=== PATIENT | female | born 1945 | race Caucasian/White ===

== ENCOUNTER 2020-03-25 10:43 | Outpatient (CLI) | payer MEDICARE, OTHER, SELFPAY ==
--- NOTE | 2020-03-25 10:46 | MM_ITS ---
WS: [id number] BILATERAL SCREENING DIGITAL MAMMOGRAM WITH CAD HISTORY: SCREENING COMPARISON: 03/19/2019 and 12/19/2016 Bilateral CC and MLO views submitted. Computer aided detection analyzed. Breast composition: The breasts are heterogeneously dense, which may obscure small masses. No suspici ous masses, microcalcifications or architectural distortion. Benign calcifications and scattered asym metries are stable. MM/[place] [id number] IMPRESSION: BI-RADS: 2-Benign FOLLOW UP: 1 Year Follow-up
== END 2020-03-25 10:44 | disposition home or self-care (01) ==
LOC: RADSHAW 10:43
PROVIDERS: PCP Internal Medicine; Visit Provider Family Medicine
DX: Z12.31 Encounter for screening mammogram for malignant neoplasm of breast (principal)
CPT/HCPCS: 77067

== ENCOUNTER → 2020-03-30 17:32 | Outpatient (BNVA) | payer MEDICARE, OTHER, SELFPAY | PROVIDERS: PCP Internal Medicine; Visit Provider Urology | DX: R32 Unspecified urinary incontinence (principal); N39.0 Urinary tract infection, site not specified | CPT/HCPCS: 80053; 81001; 87077; 87086; 87186 ==

== ENCOUNTER 2020-05-20 09:46 | Outpatient (CLI) | payer MEDICARE, OTHER, SELFPAY ==
--- NOTE | 2020-05-20 10:08 | XR_ITS ---
WS: [id number] Bone mineral density performed on a [email or web address], 05/20/2020 Clinical data: ASYMPTOMATIC POSTMENOPAUSAL Findings: The first 4 lumbar vertebral bodies demonstrated the bone mineral density of 1.032 g/cm2 for a young adult T score of -1.2. Measurement of the left hip reveals a bone mineral density of 0.838 g/cm2 with a young adult T score of -1.3. Measurement of the right hip reveals the bone mineral density of 0.893 g/cm2 for young adult T score of -0.9. XR/XR DEXA axial skeleton* [id number] Impression: 1. Osteopenia of the lumbar spine and left hip. 2. Normal bone mineral density of the right hip.
== END 2020-05-20 09:47 | disposition home or self-care (01) ==
LOC: RADWPI 09:52
PROVIDERS: PCP Internal Medicine; Visit Provider Internal Medicine
DX: Z78.0 Asymptomatic menopausal state (principal)
CPT/HCPCS: 77080

== ENCOUNTER 2020-12-23 13:25 | Outpatient (CLI) | payer MEDICARE, OTHER, SELFPAY ==
--- NOTE | 2020-12-23 13:32 | XR_ITS ---
WS: [id number] Left hip, AP and frog leg views, 12/23/2020 Clinical Data: HIP PAIN, LEFT, UNSPECIFIED FALL, INITIAL ENCOUNTER Comparison: Left hip, 12/17/2018. Findings: No fractures or dislocations are seen. The left hip joint is intact. The soft tissues are not remarka ble. The adjacent pelvis is normal. XR/XR hip LT 2-3V wo/w pel* [id number] Impression: Negative left hip.
== END 2020-12-23 13:26 | disposition home or self-care (01) ==
PROVIDERS: PCP Internal Medicine; Visit Provider Nurse Practitioner Family
DX: M25.552 Pain in left hip (principal); W19.XXXA Unspecified fall, initial encounter
CPT/HCPCS: 73502

== ENCOUNTER 2021-02-01 12:24 | Outpatient (RCR) | payer MEDICARE, OTHER, SELFPAY | END 2021-02-15 23:59 | disposition home or self-care (01) | LOC: SPT 12:24 | PROVIDERS: PCP Internal Medicine; Referring Provider Orthopaedic Surgery; Visit Provider Orthopaedic Surgery | DX: M25.552 Pain in left hip (principal) | CPT/HCPCS: 97110; 97161 ==

== ENCOUNTER 2021-02-16 06:00 | Outpatient (RCR) | payer MEDICARE, OTHER, SELFPAY | END 2021-03-18 23:59 | disposition home or self-care (01) | LOC: SPT 06:00 | PROVIDERS: PCP Internal Medicine; Referring Provider Orthopaedic Surgery; Visit Provider Orthopaedic Surgery | DX: M25.552 Pain in left hip (principal) | CPT/HCPCS: 97110 ==

== ENCOUNTER 2021-08-18 22:33 | Emergency (ER) | payer MEDICARE, OTHER, SELFPAY ==
[2021-08-18 22:47] VITALS: BP 138/77; PULSE 98; RESP 22; TEMP 36.6; O2SAT 100
--- NOTE | 2021-08-18 22:54 | CTR_ITS ---
PROCEDURE INFORMATION: Exam: CT Cervical Spine Without Contrast Exam date and time: 08/18/2021 10:54 PM Age: 76 years old Clinical indication: Injury or trauma; Fall; Blunt trauma; Prior surgery; Surgery type: Thyroidectomy; Patient HX: Patient tripped and hit head against door frame at home. Hematoma with laceration to RT eyebrow. ETOH on board. TECHNIQUE: Imaging protocol: Computed tomography images of the cervical spine without contrast. Radiation optimization: All CT scans at this facility use at least one of these dose optimization techniques: automated exposure control; mA and/or kV adjustment per patient size (includes targeted exams where dose is matched to clinical indication); or iterative reconstruction. COMPARISON: CT head wo con* [id number] 08/18/2021 11:48 PM RADIATION DOSE METRICS: Total DLP (mGy-cm): 738.33 FINDINGS: Bones/joints: Mild dextroscoliosis. Moderate to severe multilevel spine degenerative changes including degenerative disc disease, spondylosis and facet degenerative changes. Discs/Spinal canal/Neural foramina: Multilevel bilateral foraminal stenosis. Thyroid: Surgical clips in the thyroid bed most consistent with bilateral thyroidectomy. Lungs: Lung apices are normal. Soft tissues: Unremarkable. CT/CT cervical spin wo con* [id number] IMPRESSION: No acute C-spine findings.
--- NOTE | 2021-08-18 22:54 | CTR_ITS ---
PROCEDURE INFORMATION: Exam: CT Head Without Contrast Exam date and time: 08/18/2021 10:54 PM Age: 76 years old Clinical indication: Injury or trauma; Fall; Blunt trauma (contusions or hematomas) and laceration; Without residual foreign body; Right; Patient HX: Patient tripped and hit head against door frame at home. Hematoma with laceration to RT eyebrow. ETOH on board. TECHNIQUE: Imaging protocol: Computed tomography of the head without contrast. Radiation optimization: All CT scans at this facility use at least one of these dose optimization techniques: automated exposure control; mA and/or kV adjustment per patient size (includes targeted exams where dose is matched to clinical indication); or iterative reconstruction. COMPARISON: No relevant prior studies available. RADIATION DOSE METRICS: Total DLP (mGy-cm): 925.48 FINDINGS: Brain: Mild cerebral atrophy and ischemic leukoencephalopathy. Cerebral ventricles: No ventriculomegaly. Paranasal sinuses: Visualized sinuses are unremarkable. No fluid levels. Mastoid air cells: Visualized mastoid air cells are well aerated. Vasculature: Severe calcified intracranial atherosclerotic vessel disease. Bones/joints: Unremarkable. No acute fracture. Soft tissues: Soft tissue swelling and/or hematoma over the right orbit and forehead with laceration over the right eyebrow. CT/CT head wo con* [id number] IMPRESSION: 1. Soft tissue swelling and/or hematoma over the right orbit and forehead with laceration over the right eyebrow. 2. No acute intracranial findings.
--- NOTE | 2021-08-18 22:55 | W.ED.HEATRA ---
HPI - Head Injury General: Chief complaint: Head Injury Stated complaint: Fell Head injury Time Seen by Provider: 08/18/21 22:46 History of Present Illness: HPI Narrative: Patient fell at home this evening. Struck her head against a door frame. Boyfriend said that she was slightly sluggish afterwards. Patient had 2 beers and 4 Tea drinks this evening. And that happened over a period of about 3 hours. Little bit more than what she normally drinks but she says she did not feel intoxicated. Denies headache neck pain denies any pain anywhere else in her body. Does not take any blood thinners. Complaint: fall Onset (ago): minute(s) Mechanism of Injury: fall Place: home Loss of Consciousness: no Location of injury: frontal Severity: mild Severity scale (1-10): 1 Associated symptoms: Reports no associated symptoms; Deny nausea or vomiting Review of Systems Narrative: A fall at home this evening striking door frame. Boyfriend was in the next room and come and found her and states she was slightly sluggish afterwards Const: Denies: fever(s), chills or body aches Eyes: Denies: change in vision or blurry vision ENMT: Denies: throat pain or nasal congestion Card: Denies: chest pain or dyspnea on exertion Resp: Reports: other (History of sleep apnea.); Denies: dyspnea, productive cough or non-productive cough GI: Denies: abdominal pain, nausea or vomiting Musc: Denies: extremity pain Skin/Breast: Reports: skin tenderness (Skin tear above right eye after a fall); Denies: rash Neuro: Denies: headache(s) Psych: Denies: anxiety or depression Bubba/Lymph: Denies: easy bruising PFSH ED PFSH: Medical History (Updated 08/19/21 @ 00:51 by CHELI Green) Hypertension Recurrent UTI Thyroid cancer Urinary incontinence Surgical History H/O breast biopsy H/O thyroidectomy H/O: hysterectomy Family History Father , 66 Alcohol abuse Mother , 42 Cancer Social History Smoking and tobacco status: never smoked Alcohol intake: current Alcohol intake frequency: few times a month Marital status: / Physical Exam Narrative: EXAM NARRATIVE: Patient appears slightly intoxicated but able to speak in full sentences Const: COMMON NORMALS: no acute distress and patient oriented x3 GENERAL APPEARANCE: cooperative HENMT: COMMON NORMALS: normocephalic, EAC's normal, TM's normal bilaterally and Normal external nose present HEAD & SCALP: normocephalic FACE & SINUS: normal facial exam NOSE: Normal external nose present EXTERNAL AUDITORY CANAL: EAC's normal TYMPANIC MEMBRANE: TM's normal bilaterally MOUTH: Normal oral and palatal mucosa present Eye: COMMON NORMALS: EOMs intact bilaterally, conjunctivae normal and normal visual grant by confrontation GENERAL EYE: appearance normal, both eyes and all related structures CONJUNCTIVA: Yes conjunctivae normal Neck/C-Spine: CERVICAL SPINE: Yes cervical ROM normal and No pain with cervical ROM Resp: COMMON NORMALS: normal respiratory effort EFFORT & INSPECTION: Yes able to speak in complete sentences Neuro: COMMON NORMALS: patient oriented x3 and moves all extremities Skin: NARRATIVE SKIN EXAM: Skin tear above right eyebrow no active bleeding, has small lack to right outer aspect of upper eyelid with minor oozing. Procedures Laceration Laceration 1: Site: face Side (If applicable): right Size (cm): 0.3 Description: stellate Depth: simple, single layer Pre-repair: irrigated extensively Skin layer closed with: other (Skin adhesive) Course Vital Signs: Vital signs: Vital Signs Temperature 97.8 F 08/18/21 22:47 Pulse Rate 98 08/18/21 22:47 Respiratory Rate 22 H 08/18/21 22:47 Blood Pressure 138/77 08/18/21 22:47 Pulse Oximetry 100 08/18/21 22:47 MDM - Head Injury MDM Narrative: Medical decision making narrative: Patient presents here with head injury after a fall against a door frame after drinking some alcohol tonight. Patient is alert and oriented x3 able to converse appropriately. She has a skin tear above right eyebrow and has a small stellate laceration to the right upper eyelid. Patient has no discomfort anywhere else on her body. Imaging and neck and head through CT was negative for any concerning findings. Discussed case with Dr. Dia. patient was ambulated after wounds taken care of and patient ambulated well. Patient was discharged home in the care of her boyfriend who will be spending the night with her. Discharge Plan Discharge Patient Disposition: Home Clinical Impression: Laceration Fall Qualifiers: Encounter type: initial encounter Qualified Code(s): W19.XXXA - Unspecified fall, initial encounter Alcohol intoxication Qualifiers: Complication of substance-induced condition: uncomplicated Qualified Code(s): F10.920 - Alcohol use, unspecified with intoxication, uncomplicated Condition: Stable Prescriptions: No Action tacrolimus 0.1 % ointment 1 applic topical BID PRNRF: 0 naproxen 500 mg tablet 500 mg PO BID Qty: 60 RF: 0 levothyroxine [Levoxyl] 75 mcg tablet 75 mcg PO DAILY RF: 0 liothyronine 25 mcg tablet 25 mcg PO DAILY RF: 0 lisinopril 10 mg tablet 10 mg PO DAILY RF: 0 estradiol 0.5 mg tablet 0.5 mg PO DAILY RF: 0 cephalexin [Keflex] 500 mg capsule 500 mg PO BID PRNRF: 0 Discharge Orders: Discharge ED (Routine); Ordered 08/19/21 Ordered By: Joseph Lima Referrals: Zandra Christianson MD [Primary Care Provider] - Discharge Diet: Usual diet Discharge Activity: Increase activity as tolerated Patient Instructions: Skin Adhesive Care (ED), Fall Prevention (ED) Activity Restrictions/Additional Instructions: Follow-up with your primary care provider or return the ER if any worsening of symptoms. Can apply ice to areas of contusion and laceration. Watch for signs and symptoms of infection. Coding Level of Care Code ED Welder Fitter Apprentice for Antony Fwoneyda Exam Detailed
[2021-08-19 01:02] VITALS: BP 115/70; PULSE 98; RESP 20; TEMP 36.6; O2SAT 100
[2021-08-19 01:42] VITALS: BP 115/70; PULSE 98; RESP 20; TEMP 36.6; O2SAT 100
== END 2021-08-19 01:45 | disposition home or self-care (01) ==
PROVIDERS: Emergency Provider Nurse Practitioner Family; PCP Internal Medicine
DX: S01.111A Laceration without foreign body of right eyelid and periocular area, initial encounter (principal); F10.920 Alcohol use, unspecified with intoxication, uncomplicated; W19.XXXA Unspecified fall, initial encounter
CPT/HCPCS: 12011; 70450; 72125; 99283

== ENCOUNTER 2021-11-06 11:46 | Outpatient (CLI) | payer MEDICARE, OTHER, SELFPAY ==
--- NOTE | 2021-11-06 11:51 | MM_ITS ---
WS: [id number] BILATERAL SCREENING 3D TOMOSYNTHESIS DIGITAL MAMMOGRAM WITH CAD HISTORY: SCREENING COMPARISON: 03/25/2020, 03/19/2019 Bilateral CC and MLO views submitted. Computer aided detection analyzed. Breast composition: The breasts are heterogeneously dense, which may obscure small masses. No suspici ous masses, microcalcifications or architectural distortion. Asymmetries and calcifications within ea ch breast are stable. MM/[place] [id number] IMPRESSION: BI-RADS: 2-Benign FOLLOW UP: 1 Year Follow-up
== END 2021-11-06 11:47 | disposition home or self-care (01) ==
LOC: RADSHAW 11:49
PROVIDERS: PCP Internal Medicine; Visit Provider Internal Medicine
DX: Z12.31 Encounter for screening mammogram for malignant neoplasm of breast (principal)
CPT/HCPCS: 77063; 77067

== ENCOUNTER → 2022-10-08 08:18 | Outpatient (BNVA) | payer MEDICARE, OTHER, SELFPAY | PROVIDERS: PCP Internal Medicine; Visit Provider Podiatrist Foot & Ankle Surgery | DX: G62.9 Polyneuropathy, unspecified (principal); L84 Corns and callosities; M20.41 Other hammer toe(s) (acquired), right foot; M20.42 Other hammer toe(s) (acquired), left foot | CPT/HCPCS: 11055; 99203 ==

== ENCOUNTER → 2022-12-17 13:27 | Outpatient (BNVA) | payer MEDICARE, OTHER, SELFPAY | PROVIDERS: PCP Internal Medicine; Visit Provider Podiatrist Foot & Ankle Surgery | DX: L84 Corns and callosities (principal); M20.41 Other hammer toe(s) (acquired), right foot; M20.42 Other hammer toe(s) (acquired), left foot | CPT/HCPCS: 99213 ==

== ENCOUNTER → 2023-11-04 12:40 | Outpatient (BNVA) | payer MEDICARE, OTHER, SELFPAY | PROVIDERS: PCP Internal Medicine; Visit Provider Dermatology | DX: L57.0 Actinic keratosis (principal); L82.0 Inflamed seborrheic keratosis; L82.1 Other seborrheic keratosis; L81.4 Other melanin hyperpigmentation; L57.8 Other skin changes due to chronic exposure to nonionizing radiation; D18.01 Hemangioma of skin and subcutaneous tissue; L85.3 Xerosis cutis | CPT/HCPCS: 17000; 17110; 99203 ==

== ENCOUNTER 2023-11-13 08:00 | Outpatient (CLI) | payer MEDICARE, OTHER, SELFPAY ==
--- NOTE | 2023-11-13 08:13 | MM_ITS ---
WS: [id number] SCREENING DIGITAL TOMOSYNTHESIS MAMMOGRAM WITH CAD HISTORY: SCREENING COMPARISON: 11/06/2021, 03/25/2020 and 12/19/2016 Bilateral CC and MLO with tomosynthesis views submitted. Synthetic mammography reviewed. Computer aid ed detection analyzed. Breast composition: There are scattered areas of fibroglandular density. No suspicious masses, microc alcifications or architectural distortion. Scattered densities and asymmetries and calcifications wit hin each breast. No new abnormality. IMPRESSION: MM/[place] [id number] BI-RADS: 2-Benign FOLLOW UP: 1 Year Follow-up
== END 2023-11-13 08:01 | disposition home or self-care (01) ==
LOC: RAD 08:03
PROVIDERS: PCP Internal Medicine; Visit Provider Internal Medicine
DX: Z12.31 Encounter for screening mammogram for malignant neoplasm of breast (principal)
CPT/HCPCS: 77063; 77067

== ENCOUNTER → 2023-11-22 15:39 | Outpatient (BNVA) | payer MEDICARE, OTHER, SELFPAY | PROVIDERS: PCP Internal Medicine; Visit Provider Specialist | DX: G62.89 Other specified polyneuropathies (principal) | CPT/HCPCS: 95910 ==

== ENCOUNTER → 2024-03-03 08:43 | Outpatient (CLI) | payer MEDICARE, OTHER, SELFPAY ==
--- NOTE | 2024-03-03 08:45 | MR_ITS ---
WS: [id number] MRI BRAIN WITHOUT CONTRAST HISTORY: MEMORY LOSS COMPARISON: CT head 08/18/2021 TECHNIQUE: Diffusion imaging, multiplanar T1, T2 and FLAIR imaging obtained. No evidence for acute infarct or hemorrhage. Shabazz-white matter differentiation is normal. Moderate atrophy with moderate small vessel ischemic type changes in the subcortical and periventricu lar white matter distribution. No prior infarct. There is a very tiny lacunar infarct in the LEFT tem poral lobe. Moderate bilateral hippocampal atrophy. Ventricles and extra-axial spaces are normal. No inferior displacement of the cerebellar tonsils. The sella turcica and pituitary gland are unremar kable. Dural venous sinuses and enterprise of [employer] demonstrate no abnormality on this unenhanced studies. Paranasal sinuses: Clear. Mastoid air cells: Normal small cyst associated with the RIGHT TM joint measures 7 mm.. Calvarium and scalp: Intact. MR/MR head wo con* [id number] IMPRESSION: 1. No acute infarct or ischemic change. 2. Moderate atrophy with moderate small vessel ischemic changes. 3. Tiny lacunar infarct LEFT temporal lobe. 4. Moderate bilateral hippocampal atrophy.
== END | disposition home or self-care (01) ==
LOC: RAD 08:42
PROVIDERS: PCP Internal Medicine; Visit Provider Internal Medicine
DX: R90.82 White matter disease, unspecified (principal); I67.89 Other cerebrovascular disease; G31.9 Degenerative disease of nervous system, unspecified; R41.3 Other amnesia
CPT/HCPCS: 70551

== ENCOUNTER → 2024-05-13 08:41 | Outpatient (BNVA) | payer MEDICARE, OTHER, SELFPAY | PROVIDERS: PCP Internal Medicine; Visit Provider Nurse Practitioner Family | DX: L57.0 Actinic keratosis (principal); L82.0 Inflamed seborrheic keratosis; L82.1 Other seborrheic keratosis; L81.4 Other melanin hyperpigmentation; L57.8 Other skin changes due to chronic exposure to nonionizing radiation | CPT/HCPCS: 17000; 99213 ==

== ENCOUNTER 2024-11-12 19:44 | Inpatient (IN) | payer MEDICARE, OTHER, SELFPAY ==
--- NOTE | 2024-11-12 19:57 | ED_ITS ---
HPI - General Adult 2 General: Chief complaint: Fall Stated complaint: Fall, Found on floor Time Seen by Provider: 11/12/24 19:45 History of Present Illness: Patient presents to the ER by EMS. EMS stated patient was found on the floor by her boyfriend and her boyfriend could not get to her because all the doors locked so he called 911 and when he got to the house someone decided she needed to come here to be evaluated. Patient has no complaints at this time. Patient states she sat down because she was tired folding close she denies falling passing out blacking out or any pain. Related Data Home Medications ?Medication ?Instructions ?Recorded ?Confirmed levothyroxine 75 mcg tablet 75 mcg PO DAILY 03/30/20 0 04/29/24 (Levoxyl) liothyronine 25 mcg tablet 25 mcg PO DAILY 03/30/20 lisinopril 10 mg tablet 10 mg PO DAILY 03/30/2004/19 tacrolimus 0.1 % topical ointment 1 applic topical BID PRN 09/22/20 04/29/24 Previous Rx's ?Medication ?Instructions ?Recorded cephalexin 500 mg capsule 500 mg PO TID 7 days #21 cap s 04/29/24 triamcinolone acetonide 0.5 % 1 applic topical DAILY # 15 grams 04/29/24 topical cream Allergies Allergy/AdvReac Type Severity Reaction Status Date / Time No Known Allergies Allergy Verified 04/29/24 15:27 Review of Systems 2 General: Reports: 10 or more systems reviewed and unremarkable except in HPI and below PFSH ED 2 PFSH: Medical History Uterine fibroid Thyroid cancer Hypertension Recurrent UTI Urinary incontinence Surgical History H/O breast biopsy H/O: hysterectomy H/O thyroidectomy Family History Father , 66 Alcohol abuse Mother , 42 Cancer Social History Smoking and tobacco/nicotine status: unknown if used tobacco/nicotine Alcohol intake: current Alcohol intake frequency: few times a month Substance/Drug Use: never Marital status: / Physical Exam 2 Const: COMMON NORMALS: no acute distress, average body habitus, patient oriented x3, no limitations, healthy appearing, alert and well nourished HENMT: COMMON NORMALS: normocephalic, atraumatic, hearing grossly normal bilaterally, external ears normal, Normal external nose present, moist oral mucous membranes and oropharynx normal HEAD & SCALP: normocephalic and atraumatic NOSE: Normal external nose present EXTERNAL EAR: Yes external ears normal Eye: COMMON NORMALS: Equal, round and reactive pupils present, EOMs intact bilaterally, conjunctivae normal and no scleral icterus CONJUNCTIVA: Yes conjunctivae normal PUPIL: Yes Equal, round and reactive pupils present Neck/C-Spine: COMMON NORMALS: full ROM, no lymphadenopathy, supple, no meningeal signs, no JVD and Thyroid normal THYROID: Thyroid normal Chest: COMMONS NORMALS: normal inspection of the chest and normal palpation of entire chest wall Resp: COMMON NORMALS: normal respiratory effort, No retractions, No use of accessory muscles and clear to auscultation bilaterally AUSCULTATION: clear to auscultation bilaterally Cardio: COMMON NORMALS: no JVD, regular rate, regular rhythm, S1 normal heart sound present, S2 normal heart sound present, No gallops present (Cardio), No clicks present (Cardio), No murmurs present (Cardio) and No rub (Cardio) R ATE: regular rate RHYTHM: regular rhythm HEART SOUNDS: S1 normal heart sound present and S2 normal heart sound present GI: COMMON NORMALS: Normal to inspection, nondistended, normoactive bowel sounds present, Soft to palpation, non-tender, No hepatosplenomegaly present and no masses PALPATION: Yes Soft to palpation and Yes No hepatosplenomegaly present Neuro: COMMON NORMALS: patient oriented x3 SENSORIUM/ORIENTATION: Yes alert MENINGEAL SIGNS: Yes no meningeal signs Course 2 Vital Signs: Vital signs: Vital Signs Temperature 97.3 F L 11/12/24 19:58 Pulse Rate 85 11/12/24 22:47 Respiratory Rate 18 11/12/24 22:47 Blood Pressure 137/82 11/12/24 22:47 Pulse Oximetry 97 11/12/24 22:47 [facility] [place] - General Adult Medical Decision Making Lab work was obtained which revealed a white count of 17.9, CK of 1650, TSH of 52.8, chest x-ray and head CT were negative. Patient was given 1 L bolus of normal saline, Dr. Lrakin was consulted to address these abnormal lab values and patient's generalized weakness. He agreed to place patient on [facility] for further evaluation treatment. Medical Records I reviewed the patient's medical records. Lab Data I reviewed the patient's lab results. 11/12/24 21:28 11/12/24 21: Radiology Impressions Chest X-Ray 11/12/24: IMPRESSION: No acute findings. Head CT 11/12/24 21: IMPRESSION: No acute intracranial abnormality. Laboratory Results WBC 17.91 10^3/uL (3.29-11.43) H 11/12/24: RBC 6.04 10^6/uL (3.85-5.65) H 11/12/24 21: Hgb 15.00 g/dL (11.27-16.99) 11/12/24: Hct 46.6 % (36-47) 11/12/24: MCV 77.2 fl (85-98) L 11/12/24 21: MCH 24.8 pg (27-33) L 11/12/24: MCHC 32.2 g/dL (30-55) 11/12/24: RDW 14.6 % (12.1-15.1) 11/12/24: Plt Count 301 10^3/cmm (157-399) 11/12/24: MPV 11.0 fL (7.4-10.4) H 11/12/24: Neut % (Auto) 89.2 % 11/12/24: Lymph % (Auto) 4.9 % 11/12/24: Todd % (Auto) 5.4 % 11/12/24: Eos % (Auto) 0.1 % 11/12/24: Baso % (Auto) 0.1 % 11/12/24: Neut # (Auto) 15.97 10^3/uL (1.8-7.7) H 11/12/24: Lymph # (Auto) 0.9 10^3/uL (0.8-4.8) 03/27/25 21:28 Todd # (Auto) 1.0 10^3/uL (0.2-0.9) H 11/12/24 21: Eos # (Auto) 0.0 10^3/uL (0.0-0.8) 11/12/24 21: Baso # (Auto) 0.0 10^3/uL (0.0-0.1) 11/12/24 21: Nucleated RBC % (auto) 0 % 11/12/24 21: Nucleated RBCs # 0.0 /100WBC 11/12/24 21: Sodium 138 mmol/L (136-145) 11/12/24 21: Potassium 3.5 mmol/L (3.5-5.1) 11/12/24 21: Chloride 99 mmol/L (98-107) 11/12/24 21: Carbon Dioxide 22 mmol/L (22-29) 11/12/24 21: Anion Gap 20.5 (5-19) H 11/12/24 21: BUN 21 mg/dL (8-23) 11/12/24 21: Creatinine 0.8 mg/dL (0.5-0.9) 11/12/24 21: GFR Calculation Not Reportable 11/12/24 21: Glucose 140 mg/dL (65-115) H 11/12/24 21: Calculated Osmolality 291 mOsm/kg (285-295) 11/12/24: Calcium 9.6 mg/dL (8.5-10.5) 11/12/24 21: Phosphorus 2.9 mg/dL (2.5-4.5) 11/12/24 21: Magnesium 2.1 mg/dL (1.7-2.3) 11/12/24 21: Total Bilirubin 1.1 mg/dL (0.15-1.2) 11/12/24 21: AST 56 U/L (0-32) H 11/12/24 21: ALT 21 U/L (0-33) 11/12/24 21: Alkaline Phosphatase 82 U/L (35-105) 11/12/24 21: Creatine Kinase 1650 U/L (26-192) H* 11/12/24 21: Total Protein 7.4 g/dL (6.6-8.7) 11/12/24 21: Albumin 4.7 g/dL (3.5-5.2) 11/12/24 21: Globulin 2.7 g/dL (1.3-4.6) 11/12/24 21: TSH 52.82 uIU/mL (0.27-4.20) H 11/12/24 21:28 Urine Color Yellow (Yellow) 11/12/24 21:43 Urine Appearance Clear (CLEAR) 11/12/24 21:43 Urine pH 5.5 (5-7) 11/12/24 21:43 Ur Specific [place] 1.019 (1.005-1.030) 11/12/24 21:43 Urine Protein 2+ (Negative) A 11/12/24 21:43 Urine Glucose (UA) Negative (Normal) 11/12/24 21:43 Urine Ketones 2+ (Negative) H 11/12/24 21:43 Urine Blood Negative (Negative) 11/12/24 21:43 Urine Nitrate Negative (Negative) 11/12/24 21:43 Urine Bilirubin Negative (Negative) 11/12/24 21:43 Urine Urobilinogen 1.0 mg/dL (Negative) 11/12/24 21:43 Ur Leukocyte Esterase Negative (Negative) 11/12/24 21:43 Urine RBC 0-2 /hpf (0-2) 11/12/24 21:43 Urine WBC 0-5 /hpf (0-5) 11/12/24 21:43 Ur Squamous Epith Cells 0-5 /hpf (0-5) 11/12/24 21:43 Amorphous Sediment Not Reportable 11/12/24 21:43 Urine Bacteria None seen /hpf (NONE) 11/12/24 21:43 Hyaline Casts 0-4 /lpf H 11/12/24 21:43 All radiology interpretation(s) finalized by discharge Discharge Plan Discharge Patient Disposition: Admitted As Inpatient Admit Provider: Jovanny Larkin Clinical Impression: Fall, Generalized muscle weakness, Rhabdomyolysis, Elevated TSH Condition: Stable Coding Level of Care Code ED Police Matron for Antony Davis
[2024-11-12 19:58] VITALS: BP 157/84; PULSE 94; RESP 20; TEMP 36.3; O2SAT 96; BMI 16.6
--- NOTE | 2024-11-12 21:13 | XRR_ITS ---
PROCEDURE INFORMATION: Exam: XR Chest Exam date and time: 11/12/2024 9:20 PM Age: 79 years old Clinical indication: Other: Weakness; Additional info: Weakness, hypertension TECHNIQUE: Imaging protocol: Radiologic exam of the chest. Views: 1 view. COMPARISON: CT cervical spin wo con* [id number] 08/18/2021 11:51 PM FINDINGS: Lungs: Unremarkable. No consolidation. Pleural spaces: Unremarkable. No pleural effusion. No pneumothorax. Heart/Mediastinum: Unremarkable. No cardiomegaly. Bones/joints: Unremarkable. XR/XR chest 1V portable [id number] IMPRESSION: No acute findings.
--- NOTE | 2024-11-12 21:13 | CTR_ITS ---
PROCEDURE INFORMATION: Exam: CT Head Without Contrast Exam date and time: 11/12/2024 10:05 PM Age: 79 years old Clinical indication: Injury or trauma; Fall; Blunt trauma (contusions or hematomas); Without loss of consciousness; Additional info: Fall, weakness, confusion TECHNIQUE: Imaging protocol: Computed tomography of the head without contrast. Radiation optimization: All CT scans at this facility use at least one of these dose optimization techniques: automated exposure control; mA and/or kV adjustment per patient size (includes targeted exams where dose is matched to clinical indication); or iterative reconstruction. COMPARISON: MR head wo con* [id number] 03/03/2024 9:41 AM RADIATION DOSE METRICS: Total DLP (mGy-cm): 1054.88 FINDINGS: Brain: Periventricular white matter changes likely related to chronic ischemic small vessel disease. No intracranial mass, hemorrhage or recent infarct. Cerebral ventricles: No ventriculomegaly. Paranasal sinuses: Visualized sinuses are unremarkable. No fluid levels. Mastoid air cells: Visualized mastoid air cells are well aerated. Bones: Unremarkable. No acute fracture. Soft tissues: Unremarkable. CT/CT head wo con* [id number] IMPRESSION: No acute intracranial abnormality.
[2024-11-12 21:39] LABS: Basophils % 0.1 %; Eosinophils % 0.1 %; Hematocrit 46.6 % (36-47); Lymphocytes # 0.9 10^3/uL (0.8-4.8); Lymphocytes % 4.9 %; Mean Corpuscular HGB Conc 32.2 g/dL (30-55); Mean Corpuscular Hemoglobin 24.8 pg (27-33); Mean Corpuscular Volume 77.2 fl (85-98); Monocytes % 5.4 %; Neutrophils # 15.97 10^3/uL (1.8-7.7); Neutrophils % 89.2 %; Nucleated Red Blood Cells % 0 %; Platelet Count 301 10^3/cmm (157-399); Red Blood Count 6.04 10^6/uL (3.85-5.65); Red Cell Distribution Width 14.6 % (12.1-15.1); White Blood Count 17.91 10^3/uL (3.29-11.43)
[2024-11-12 21:48] LABS: Bilirubin Urine Negative (Negative); Blood Urine Negative (Negative); Glucose Urine UA Negative (Normal); Ketones Urine 2+ (Negative); Leukocyte Esterase Urine Negative (Negative); Nitrate Urine Negative (Negative); Protein Urine 2+ (Negative); Specific Gravity, Urine 1.019 (1.005-1.030); Urine Appearance Clear (CLEAR); Urine Color Yellow (Yellow); pH Urine 5.5 (5-7)
[2024-11-12 21:53] LABS: Add Urine Microscopic? YES; Bacteria Urine None Seen /hpf; Hyaline Casts Urine 0-4 /lpf; RBC Urine 0-2 /hpf (0-2); Squamous Epithelial Cell Urine 0-5 /hpf (0-5); WBC Urine 0-5 /hpf (0-5)
[2024-11-12 22:08] LABS: Alanine Aminotransferase 21 U/L (0-33); Albumin Level 4.7 g/dL (3.5-5.2); Alkaline Phosphatase 82 U/L (35-105); Anion Gap 20.5 (5-19); Aspartate Amino Transferase 56 U/L (0-32); Blood Urea Nitrogen 21 mg/dL (8-23); Calcium 9.6 mg/dL (8.5-10.5); Carbon Dioxide 22 mmol/L (22-29); Chloride 99 mmol/L (98-107); Creatinine Clr Calc Pharmacy 41.5003; Globulin 2.7 g/dL (1.3-4.6); Glucose 140 mg/dL (65-115); Osmolality Calculated 291 mOsm/kg (285-295); Potassium 3.5 mmol/L (3.5-5.1); Sodium 138 mmol/L (136-145); Thyroid Stimulating Hormone 52.82 uIU/mL (0.27-4.20); Total Bilirubin 1.1 mg/dL (0.15-1.2); Total Protein 7.4 g/dL (6.6-8.7)
[2024-11-12 22:10] LABS: Creatine Phosphokinase 1650 U/L (26-192)
[2024-11-12 22:40] LABS: Magnesium 2.1 mg/dL (1.7-2.3); Phosphorus 2.9 mg/dL (2.5-4.5)
[2024-11-12] MEDS: sodium chloride 0.9% 1,000 ML 999 ML IV (22:46)
[2024-11-12 22:47] VITALS: BP 137/82; PULSE 85; RESP 18; O2SAT 97
--- NOTE | 2024-11-12 23:14 | P.HP_ITS ---
Providers/Chief Complaint 2 Admitting Physician: Jovanny Larkin MD Primary Care Provider: Zandra Christianson MD Chief Complaint: Fall, Found on floor History of Present Illness Marry Baltazar is a 79 year old female with history of hypothyroidism, hypertension, lives alone, presented after sustaining a fall. Patient is stating that she is compliant with her medication and takes her medication between 9 and noon every day, endorsing that today she fell and could not get up because of lack of energy. When significant other/boyfriend checked on her she was on the floor not able to get up, this was very unusual for fairly active Marry, she was brought in for further evaluation, workup in the ER consistent with abnormal CPK 1650, TSH 52, she was given stress dose steroids and IV levothyroxine 50 mcg, she is not showing signs of significant confusion or myxedema coma there is no significant swelling of lower extremities, patient is alert oriented x 4, GCS 15 NIH 0. She is not able to recall events from the morning stating that she has no memory of the event in the morning. At this point patient is not showing hypothermia and bradycardia, I requested EKG, B12 free T4 level, patient body temperature 97.3, blood pressure stable no signs of respiratory distress or significant encephalopathy. CT head unremarkable chest x-ray unremarkable. Review of Systems 2 Eyes: Denies: change in vision ENMT: Denies: throat pain Card: Denies: chest pain Resp: Denies: dyspnea GI: Denies: abdominal pain : Denies: flank pain Musc: Reports: back pain and limited range of motion Skin/Breast: Denies: rash Neuro: Reports: weakness in extremities Medications/Allergies Home Medications ?Medication ?Instructions ?Recorded ?Confirmed ?Last Taken ?Type levothyroxine 75 mcg tablet 75 mcg PO DAILY 03/30/20 0 04/29/24 Unknown History (Levoxyl) liothyronine 25 mcg tablet 25 mcg PO DAILY 03/30/20 Unknown History lisinopril 10 mg tablet 10 mg PO DAILY 03/30/2004/19 Unknown History tacrolimus 0.1 % topical ointment 1 applic topical BID PRN 09/22/20 04/29/24 Unknown History cephalexin 500 mg capsule 500 mg PO TID 7 days #21 cap s 04/29/24 04/29/24 Unknown Rx triamcinolone acetonide 0.5 % 1 applic topical DAILY # 15 grams 04/29/24 04/29/24 Unknown Rx topical cream Allergies Allergy/AdvReac Type Severity Reaction Status Date / Time No Known Allergies Allergy Verified 04/29/24 15:27 PFSH Acute 2 PFSH: Medical History Uterine fibroid Thyroid cancer Hypertension Recurrent UTI Urinary incontinence Surgical History H/O breast biopsy H/O: hysterectomy H/O thyroidectomy Family History Father , 66 Alcohol abuse Mother , 42 Cancer Social History Smoking and tobacco/nicotine status: unknown if used tobacco/nicotine Alcohol intake: current Alcohol intake frequency: few times a month Substance/Drug Use: never Marital status: / Vitals/I&O/Wt Last Vital Signs Temp 97.3 F L 11/12/24 19:58 Pulse 85 11/12/24 22:47 Resp 18 11/12/24 22:47 BP 137/82 11/12/24 22:47 Pulse Ox 97 11/12/24 22:47 11/12/24 11/12/24 11/13/24 14:59 22:59 06:59 Intake Total 0 / 0 Balance 0 / 0 Weight last 48 hrs Weight 45.359 kg Physical Exam 2 Narrative: Patient laying supine AOx4 No active distress at all GCS 15 No active focal deficit Patient is able to tell me that current president is Mr. Gupta and Farhat schneider owns [facility] Looks dehydrated Abdomen soft Lower extremity no edema S1, S2 Currently on room air No audible stridor or wheezing No signal swelling of lower extremities Data 11/12/24 21:28 11/12/24 21:28 A&P Assessment and plan (1) Urinary incontinence: (2) Elevated TSH: (3) Generalized muscle weakness: (4) Fall: Qualifiers: Encounter type: initial encounter Qualified Code(s): W19.XXXA - Unspecified fall, initial encounter (5) Peripheral neuropathy: Plan Poorly controlled hypothyroidism Generalized weakness and fatigue Fall at home Mild muscle injury, monitor for rhabdomyolysis Stress test steroid administered IV levothyroxine 50 mcg administered No typical signs of myxedema,, hemodynamically stable, no significant swelling of lower extremities, AOx4 NIH 0 Continue levothyroxine Requested physical therapy DVT prophylaxis: Lovenox Cardiac diet Hypertension: Continue lisinopril Patient lives alone stating that her significant other checks on her on daily basis but they do not live together PDMP PDMP Reviewed: Not Reviewed Attestations 2 Medical Necessity Statement*: Anticipating more than 2 midnights in the hospital for management valuation of fall, rhabdomyolysis and hypothyroidism Coding Level of Care Code Acute Code for Chg Fwd Diagnoses Urinary incontinence R32 Elevated TSH R79.89 Generalized muscle weakness M62.81 Fall W19.XXXA Encounter type: initial encounter Peripheral neuropathy G62.9
[2024-11-12 23:16] VITALS: BP 121/67; PULSE 82; RESP 18; O2SAT 94
--- NOTE | 2024-11-12 23:19 | ECG_ITS ---
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 Measurements Intervals [place] Rate: 80 P: 63 OH: 155 QRS: 53 QRSD: 90 T: 48 QT: 404 QTc: 466 Interpretive Statements SINUS RHYTHM No previous ECG available for comparison Electronically Signed On 11-13-2024 14:21:42 CDT by Brock Roman M.D. [email or web address]
[2024-11-12 23:31] VITALS: BP 132/83; PULSE 88; RESP 16; O2SAT 95
--- NOTE | 2024-11-12 23:51 | USCV_ITS ---
Marry Baltazar Age: 79 Gender: F : 1945 Exam Date: 11/12/2024 23:57 Ordering Phys: Jovanny Larkin MD Technologist: BRITTANI [place] [facility] [place]ication: syncope. No history of cardiac intervention per patient. BP: 132 / 83 HR: 74 Rhythm: Sinus Technical Quality: Adequate MEASUREMENTS (Male / Female) Normal Values 2D ECHO LV Diastolic Diameter PLAX 3.1 cm 4.2 - 5.9 / 3.9 - 5.3 cm IVS Diastolic Thickness 1.1 cm 0.6 - 1.0 / 0.6 - 0.9 cm IVS Systolic Thickness 1.5 cm LVPW Diastolic Thickness 1.2 cm 0.6 - 1.0 / 0.6 - 0.9 cm LVPW Systolic Thickness 1.7 cm LVOT Diameter 1.6 cm LV Ejection Fraction 2D Teich 67.2 % LV Ejection Fraction MOD 4C 56.8 % LV Ejection Fraction MOD 2C 62.9 % LV Ejection Fraction 2C AL 63.0 % LA Diameter 2.1 cm Aorta at Sinotubular Diameter 2.5 cm IVC Diameter 0.9 cm M-MODE LA Ao Ratio MM 0.7 AV Cusp Separation MM 2.4 cm DOPPLER AV Peak Velocity 140.0 cm/s LVOT Peak Velocity 136.0 cm/s AV Area Cont Eq vti 1.8 cm squared AV Area Cont Eq pk 2.0 cm squared MV Peak Velocity 86.0 cm/s MV Area PHT 3.1 cm squared Mitral E to A Ratio 0.7 TR Peak Velocity 216.0 cm/s TR Peak Gradient 18.7 mmHg TV Peak E Velocity 28.0 cm/s PV Peak Velocity 84.0 cm/s FINDINGS Left Ventricle Normal left ventricular size and systolic function, EF 60%. Mild left ventricular hypertrophy. No regional wall motion abnormalities. Grade I/IV diastolic dysfunction (abnormal relaxation filling pattern), normal to mildly elevated filling pressures. Right Ventricle The right ventricle is normal in size and function. Right Atrium The right atrium is normal in size. Left Atrium The left atrium is normal in size. Mitral Valve Mild mitral annular calcification. Aortic Valve Thickened aortic valve. Tricuspid Valve Trace tricuspid valve regurgitation. Pulmonic Valve Pulmonic valve not well visualized. Pericardium Normal pericardium without effusion. Aorta Normal ascending aorta dimension. IVC Inferior vena cava not visualized. CONCLUSIONS Normal left ventricular size and systolic function, EF 60%. Mild left ventricular hypertrophy. No regional wall motion abnormalities. Grade I/IV diastolic dysfunction (abnormal relaxation filling pattern), normal to mildly elevated filling pressures. Mild mitral annular calcification. Thickened aortic valve. Trace tricuspid valve regurgitation. There is no pericardial effusion. There are no intracardiac masses. No similar previous studies are available for comparison Dr Brock Roman MD [facility] (Electronically Signed) Final Date: 13 November 2024 11:27 S
[2024-11-13] VITALS (8 sets, daily range): BP systolic 118–152; BP diastolic 67–79; PULSE 75–89; RESP 16–17; TEMP 36.5–36.8; O2SAT 93–97
[2024-11-13] MEDS: enoxaparin 40 mg/0.4 mL Syringe SUBCUT (00:04)
[2024-11-13] MEDS: hydrocortisone 100 mg/2 mL SDV IVP ×2 (00:04→12:29)
[2024-11-13] MEDS: sodium chloride 0.9% 1,000 ML 75 ML IV ×2 (00:04→09:16)
[2024-11-13 00:08] LABS: Free T4 Free Thyroxine 0.15 ng/dL (0.82-1.77); T3 Free 0.6 PG/ML (2.0-4.4)
[2024-11-13] MEDS: levothyroxine 100 mcg SDV 50 MCG IVP (00:54)
[2024-11-13 00:57] LABS: Estmated Average Glucose 128; Hemoglobin A1C 6.1 % (4.0-6.0)
[2024-11-13 01:51] LABS: Vitamin B12 323 pg/mL (232-1245)
[2024-11-13 03:14] LABS: Basophils % 0.2 %; Hematocrit 43.9 % (36-47); Lymphocytes # 0.9 10^3/uL (0.8-4.8); Lymphocytes % 6.6 %; Mean Corpuscular HGB Conc 32.1 g/dL (30-55); Mean Corpuscular Hemoglobin 25.2 pg (27-33); Mean Corpuscular Volume 78.5 fl (85-98); Mean Platelet Volume 11.2 fL (7.4-10.4); Monocytes # 0.4 10^3/uL (0.2-0.9); Monocytes % 2.7 %; Neutrophils # 11.98 10^3/uL (1.8-7.7); Neutrophils % 90.1 %; Nucleated Red Blood Cells % 0 %; Platelet Count 286 10^3/cmm (157-399); Red Blood Count 5.59 10^6/uL (3.85-5.65); Red Cell Distribution Width 14.9 % (12.1-15.1)
[2024-11-13 03:41] LABS: Anion Gap 18.8 (5-19); Blood Urea Nitrogen 20 mg/dL (8-23); C Reactive Protein 8.7 mg/L (0.0-4.9); Calcium 9.2 mg/dL (8.5-10.5); Carbon Dioxide 21 mmol/L (22-29); Chloride 103 mmol/L (98-107); Creatinine Clr Calc Pharmacy 50.3808; Glucose 119 mg/dL (65-115); Magnesium 2.2 mg/dL (1.7-2.3); Osmolality Calculated 292 mOsm/kg (285-295); Potassium 3.8 mmol/L (3.5-5.1); Sodium 139 mmol/L (136-145)
[2024-11-13 03:46] LABS: Creatine Phosphokinase 1212 U/L (26-192)
[2024-11-13] MEDS: lisinopril 10 mg Tablet PO (09:11)
[2024-11-13 12:49] LABS: Creatine Phosphokinase 1171 U/L (26-192)
--- NOTE | 2024-11-13 12:53 | PC.SOCIAL ---
IMM UPDATED IMM dated and initialed, copy given to patient and copy placed in chart.
[2024-11-13 12:58] LABS: Free T4 Free Thyroxine 0.23 ng/dL (0.82-1.77); T3 Free 0.5 PG/ML (2.0-4.4); Thyroid Stimulating Hormone 51.63 uIU/mL (0.27-4.20)
--- NOTE | 2024-11-13 17:01 | P.PN_ITS ---
Subjective 2 Subjective: Patient was seen this morning, patient's partner is at bedside, patient reports that she lives at home by herself, she tells me that she is able to take care of herself, her life partner does help, yesterday, she has hardwood floors in in her socks which have poor traction and she slipped, and slid to the ground, she was on the ground for some period of time, before family discovered her, no facial droop, no slurring her words, no focal weakness, no facial droop no slurring words, no strokelike symptoms, no chest pain, no cardiovascular history, no shortness of breath she is adamant that she has been taking her thyroid medication, during our discussion she does at times seem forgetful, and looks to her life partner for answers, she does report that her primary care provider recently increased her dose of levothyroxine to 88 mcg daily Vitals/I&O/Wt Last Vital Signs Temp 98.0 F 11/13/24 12:00 Pulse 89 11/13/24 12:00 Resp 16 11/13/24 08:19 BP 120/70 11/13/24 12:00 Pulse Ox 97 11/13/24 12:00 O2 Del Method Room Air 11/13/24 12:00 11/13/24 11/13/24 11/13/24 06:59 14:59 22:59 Intake Total 1000 / 1000 930 / 930 Balance 1000 / 1000 930 / 930 Weight last 48 hrs Weight 52.163 kg Weight 52.163 kg Weight 45.359 kg Physical Exam 2 Const: COMMON NORMALS: no acute distress and patient oriented x3 Resp: COMMON NORMALS: normal respiratory effort, No retractions, No use of accessory muscles and clear to auscultation bilaterally AUSCULTATION: clear to auscultation bilaterally Cardio: COMMON NORMALS: regular rate, regular rhythm, S1 normal heart sound present and S2 normal heart sound present RATE: regular rate RHYTHM: r egular rhythm HEART SOUNDS: S1 normal heart sound present and S2 normal heart sound present GI: COMMON NORMALS: Normal to inspection, nondistended, normoactive bowel sounds present and non-tender Extremity: COMMON NORMALS: no pedal edema Neuro: COMMON NORMALS: patient oriented x3, CN's II-XII intact bilaterally and moves all extremities Psych: COMMON NORMALS: mental status grossly normal Data 03/28/25 02:40 11/13/24 02:40 A&P Assessment and plan (1) Urinary incontinence: (2) Elevated TSH: (3) Generalized muscle weakness: (4) Fall: Qualifiers: Encounter type: initial encounter Qualified Code(s): W19.XXXA - Unspecified fall, initial encounter (5) Peripheral neuropathy: Plan Poorly controlled hypothyroidism, potentially early myxedema coma Generalized weakness and fatigue With fall at home Mild muscle injury, monitor for rhabdomyolysis Plan Continue stress dose steroids IV levothyroxine 50 mcg administered Increase levothyroxine to 100 mcg daily Continue Cytomel Will do x-ray lumbar spine, x-ray of bilateral hips IV fluids for rhabdomyolysis Requested physical therapy DVT prophylaxis: Lovenox Cardiac diet Hypertension: Continue lisinopril Patient lives alone stating that her significant other checks on her on daily basis but they do not live together PDMP PDMP Reviewed: Not Reviewed Attestations 2 Medical Necessity Statement*: Patient requires hospitalization for weakness, fatigue, elevated TSH, fall, rhabdomyolysis Diagnoses Urinary incontinence R32 Elevated TSH R79.89 Generalized muscle weakness M62.81 Fall W19.XXXA Encounter type: initial encounter Peripheral neuropathy G62.9
--- NOTE | 2024-11-13 17:03 | XRR_ITS ---
PROCEDURE INFORMATION: Exam: XR Lumbosacral Spine Exam date and time: 11/13/2024 5:42 PM Age: 79 years old Clinical indication: Pain; Lumbago; Lower back/bilateral hip discomfort post fall x 1 day ago TECHNIQUE: Imaging protocol: Radiologic exam of the lumbosacral spine. Views: 2 or 3 views. COMPARISON: CR XR hip LT 2-3V wo/w pel* [id number] 12/23/2020 1:40 PM FINDINGS: Bones/joints: Lumbar vertebral body heights appear maintained, as does alignment. Disc spaces appear maintained without significant narrowing. Mild spondylotic changes. No fracture or subluxation is seen. No significant sacral abnormality. Soft tissues: Unremarkable. Mild vascular calcification. Gastrointestinal tract: Large stool content within the colon and correlate clinically for constipation. 12 mm density L2 level in the right could be related to right renal calculus or stool content within the colon which overlies this level. XR/XR lumbar spine 2-3V* [id number] IMPRESSION: No fracture or subluxation identified. Mild spondylotic change.
--- NOTE | 2024-11-13 17:03 | XRR_ITS ---
PROCEDURE INFORMATION: Exam: XR Bilateral Hips Exam date and time: 11/13/2024 5:42 PM Age: 79 years old Clinical indication: Hip pain and pelvic pain; Lower back/bilateral hip discomfort post fall x 1 day ago TECHNIQUE: Imaging protocol: Radiologic exam of the bilateral hips. Views: 2 views of hips with pelvis when performed. COMPARISON: CR XR hip LT 2-3V wo/w pel* [id number] 12/23/2020 1:40 PM FINDINGS: Bones/joints: No fracture or dislocation is seen about the hips. No fracture or diastasis is seen about the pelvis. No acute osseous abnormality. Hip joints appear maintained. Soft tissues: No significant soft tissue abnormality. XR/XR hip BI 2V wo/w pel [id number] IMPRESSION: No fracture or acute osseous abnormality.
[2024-11-13 17:29] LABS: C Reactive Protein 12.3 mg/L (0.0-4.9)
[2024-11-14] VITALS (8 sets, daily range): BP systolic 137–166; BP diastolic 71–89; PULSE 69–84; RESP 16–19; TEMP 36.4–36.8; O2SAT 96–98
[2024-11-14] MEDS: enoxaparin 40 mg/0.4 mL Syringe SUBCUT ×2 (00:15→23:31)
[2024-11-14] MEDS: sodium chloride 0.9% 1,000 ML 75 ML IV (03:07)
[2024-11-14 06:26] LABS: Basophils % 0.2 %; Hematocrit 43.4 % (36-47); Lymphocytes # 1.9 10^3/uL (0.8-4.8); Lymphocytes % 13.6 %; Mean Corpuscular Hemoglobin 25.2 pg (27-33); Mean Corpuscular Volume 78.6 fl (85-98); Mean Platelet Volume 11.8 fL (7.4-10.4); Monocytes % 7.2 %; Neutrophils # 11.01 10^3/uL (1.8-7.7); Neutrophils % 78.6 %; Nucleated Red Blood Cells % 0 %; Platelet Count 306 10^3/cmm (157-399); Red Blood Count 5.52 10^6/uL (3.85-5.65); Red Cell Distribution Width 15.3 % (12.1-15.1); White Blood Count 14.01 10^3/uL (3.29-11.43)
[2024-11-14 06:54] LABS: Alanine Aminotransferase 24 U/L (0-33); Albumin Level 4.2 g/dL (3.5-5.2); Alkaline Phosphatase 69 U/L (35-105); Anion Gap 15.3 (5-19); Aspartate Amino Transferase 49 U/L (0-32); Blood Urea Nitrogen 22 mg/dL (8-23); Calcium 9.3 mg/dL (8.5-10.5); Carbon Dioxide 22 mmol/L (22-29); Chloride 105 mmol/L (98-107); Creatinine Clr Calc Pharmacy 50.9785; Globulin 2.4 g/dL (1.3-4.6); Glucose 111 mg/dL (65-115); Osmolality Calculated 292 mOsm/kg (285-295); Potassium 3.3 mmol/L (3.5-5.1); Sodium 139 mmol/L (136-145); T3 Free 0.9 PG/ML (2.0-4.4); Thyroid Stimulating Hormone 59.93 uIU/mL (0.27-4.20); Total Bilirubin 0.9 mg/dL (0.15-1.2); Total Protein 6.6 g/dL (6.6-8.7)
[2024-11-14] MEDS: lisinopril 10 mg Tablet PO (08:51)
[2024-11-14] MEDS: levothyroxine 100 mcg Tablet PO (08:51)
[2024-11-14 09:47] LABS: Creatine Phosphokinase 933 U/L (26-192)
--- NOTE | 2024-11-14 12:13 | PC.CHAP ---
Pastoral Care Encounter/Spiritual Assessment Type of Contact [] Declined hot die picker visit [] Patient/Family/Request visit [] Outpatient visit [X] Follow-up visit [] Physician referral [] Code/Alert [] Routine visit [] Staff referral [] Actively dying [X] Patient sleeping [] Family support [] [] Out of room [] Palliative care [] [] Receiving care in room [] Pre-surgical visit [] Trauma [] Long length of stay [] ICU visit [] Other: Relational/Emotional Strength [] Patient feels connected with others/family/visitors/staff [] Distress [] Loneliness/isolation [] Abandonment Spirituality of Patient [] Person of Jalyn [] Attends Voodoo of their Jalyn [] Believes in Prayer [] Reads Bible or Mandaen materials [] There are Spiritual issues to be addressed 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 [] Prayer [] Active listening [] Non-anxious presence [] Spiritual/emotional support [] Crisis/trauma care [] Spiritual counseling [] Bereavement support [] Provided bereavement packet [] Provided Bible/devotional materials [] Provided toy/stuffed animal, coloring book to patient or family member [] Provided Communion [] Anointing/[place] [] Salvation [] Completed spiritual assessment [] Other: Impact on Illness or Injury [] Angry [] Fearful [] Anxious [] Often cries [] Exhaustion [] Unable to work [] Unable to attend church [] Unable to walk/stand [] Unable to read [] Unable to drive [] Unable to eat/drink [] Unable to sleep [] Unable to be with family [] Patient intubated [] Other: Summary Time spent with patient
--- NOTE | 2024-11-14 14:57 | P.PN_ITS ---
Subjective 2 Subjective: Patient was seen this morning, she continues to complain of weakness and fatigue, during my discussion with her she does have episodes of confusion, she goes off on tangents, some of which do not make sense, I cannot discern any facial droop, no slurring of her words, no focal weakness, reports weakness all over she tells me that she used a lift of 150 pounds, at 1 point she thought she was at home during her conversation Vitals/I&O/Wt Last Vital Signs Temp 97.7 F 11/14/24 11:28 Pulse 71 11/14/24 11:28 Resp 16 11/14/24 11:28 BP 137/78 11/14/24 11:28 Pulse Ox 96 11/14/24 11:28 O2 Del Method Room Air 11/14/24 11:28 11/13/24 11/14/24 11/14/24 22:59 06:59 14:59 Intake Total 1240 / 2170 960 / 960 Balance 1240 / 2170 960 / 960 Weight last 48 hrs Weight 53.796 kg Weight 52.163 kg Weight 52.163 kg Weight 45.359 kg Physical Exam 2 Const: COMMON NORMALS: no acute distress ORIENTATION/CONSCIOUSNESS: Yes awake, Yes oriented to person, Yes oriented to place and Yes confused; not oriented to time Resp: COMMON NORMALS: normal respiratory effort, No retractions, No use of accessory muscles and clear to auscultation bilaterally AUSCULTATION: clear to auscultation bilaterally Cardio: COMMON NORMALS: regular rate, regular rhythm, S1 normal heart sound present and S2 normal heart sound present RATE: regular rate RHYTHM: r egular rhythm HEART SOUNDS: S1 normal heart sound present and S2 normal heart sound present GI: COMMON NORMALS: Normal to inspection, nondistended, normoactive bowel sounds present and non-tender Extremity: COMMON NORMALS: no pedal edema Neuro: COMMON NORMALS: CN's II-XII intact bilaterally, moves all extremities and no focal motor deficits SENSORIUM/ORIENTATION: Yes oriented to person, Yes oriented to place and No oriented to time OTHER: No focal weakness, more generalized weakness in bilateral extremities, Psych: COMMON NORMALS: mental status grossly normal Data 11/14/24 05:33 11/14/24 05:33 A&P Assessment and plan (1) Urinary incontinence: (2) Elevated TSH: (3) Generalized muscle weakness: (4) Fall: Qualifiers: Encounter type: initial encounter Qualified Code(s): W19.XXXA - Unspecified fall, initial encounter (5) Peripheral neuropathy: (6) Altered mental status: Plan Acute encephalopathy -UA within normal limits -Will order CT head -ESR, CRP, Pro-Prasanna -Hypothyroidism certainly could be playing a role Poorly controlled hypothyroidism, potentially early myxedema coma -Has received 1 dose of IV levothyroxine -Levothyroxine increased to 100 mcg daily -Cytomel increased to 25 mcg p.o. daily -Completed stress dose steroids -Watch TSH, T3, T4 Generalized weakness and fatigue -As above Mild muscle injury, monitor for rhabdomyolysis -IV fluids Increased lower extremity weakness, CT lumbar spine -No urinary continence, no bowel incontinence, saddle perineal anesthesia Requested physical therapy DVT prophylaxis: Lovenox Cardiac diet Hypertension: Continue lisinopril Patient lives alone stating that her significant other checks on her on daily basis but they do not live together PDMP PDMP Reviewed: Not Reviewed Attestations 2 Medical Necessity Statement*: Patient requires hospitalization for altered mental status, possible early myxedema coma, generalized weakness, rhabdomyolysis Diagnoses Urinary incontinence R32 Elevated TSH R79.89 Generalized muscle weakness M62.81 Fall W19.XXXA Encounter type: initial encounter Peripheral neuropathy G62.9 Altered mental status R41.82
--- NOTE | 2024-11-14 15:00 | CTR_ITS ---
PROCEDURE INFORMATION: Exam: CT Head Without Contrast Exam date and time: 11/14/2024 3:36 PM Age: 79 years old Clinical indication: Altered mental status/memory loss; Confusion or disorientation; Additional info: AMS TECHNIQUE: Imaging protocol: Computed tomography of the head without contrast. Radiation optimization: All CT scans at this facility use at least one of these dose optimization techniques: automated exposure control; mA and/or kV adjustment per patient size (includes targeted exams where dose is matched to clinical indication); or iterative reconstruction. COMPARISON: CT head wo con* [id number] 11/12/2024 10:05 PM RADIATION DOSE METRICS: Total DLP (mGy-cm): 1030.88 FINDINGS: Brain: No hemorrhage. No edema. Moderate diffuse cerebral atrophy and sequela of chronic small vessel ischemic disease. No mass effect. Cerebral ventricles: No ventriculomegaly. Paranasal sinuses: Visualized sinuses are unremarkable. No fluid levels. Mastoid air cells: Visualized mastoid air cells are well aerated. Bones: Unremarkable. No acute fracture. Soft tissues: Unremarkable. CT/CT head wo con* [id number] IMPRESSION: No acute intracranial abnormality.
--- NOTE | 2024-11-14 15:00 | CTR_ITS ---
PROCEDURE INFORMATION: Exam: CT Lumbar Spine Without Contrast Exam date and time: 11/14/2024 3:40 PM Age: 79 years old Clinical indication: Weakness TECHNIQUE: Imaging protocol: Computed tomography of the lumbar spine without contrast. Radiation optimization: All CT scans at this facility use at least one of these dose optimization techniques: automated exposure control; mA and/or kV adjustment per patient size (includes targeted exams where dose is matched to clinical indication); or iterative reconstruction. COMPARISON: CR XR lumbar spine 2-3V* [id number] 11/13/2024 5:42 PM RADIATION DOSE METRICS: Total DLP (mGy-cm): 437.63 FINDINGS: Bones/joints: No acute fracture. Normal alignment. No significant disc bulge or herniation. No severe spinal canal stenosis. No significant neural foraminal narrowing. Soft tissues: Unremarkable. CT/CT lumbar spine wo con* [id number] IMPRESSION: No acute findings.
[2024-11-14 15:33] LABS: Erythrocyte Sedimentation Rate 4 mm/hr (0-15)
[2024-11-14 15:53] LABS: C Reactive Protein 4.2 mg/L (0.0-4.9); Procalcitonin 0.06 ng/mL (0-0.5)
[2024-11-15] VITALS (7 sets, daily range): BP systolic 104–160; BP diastolic 66–90; PULSE 66–86; RESP 15–18; TEMP 36.3–36.8; O2SAT 94–99
[2024-11-15 05:57] LABS: Basophils % 0.3 %; Hematocrit 44.1 % (36-47); Lymphocytes # 2.3 10^3/uL (0.8-4.8); Lymphocytes % 23.9 %; Mean Corpuscular HGB Conc 30.8 g/dL (30-55); Mean Corpuscular Hemoglobin 25.2 pg (27-33); Mean Corpuscular Volume 81.8 fl (85-98); Mean Platelet Volume 11.5 fL (7.4-10.4); Monocytes # 0.7 10^3/uL (0.2-0.9); Monocytes % 7.7 %; Neutrophils # 6.38 10^3/uL (1.8-7.7); Neutrophils % 67.8 %; Nucleated Red Blood Cells % 0 %; Platelet Count 287 10^3/cmm (157-399); Red Blood Count 5.39 10^6/uL (3.85-5.65); Red Cell Distribution Width 15.4 % (12.1-15.1); White Blood Count 9.42 10^3/uL (3.29-11.43)
[2024-11-15 06:23] LABS: Alanine Aminotransferase 30 U/L (0-33); Albumin Level 4.1 g/dL (3.5-5.2); Alkaline Phosphatase 62 U/L (35-105); Anion Gap 15.1 (5-19); Aspartate Amino Transferase 43 U/L (0-32); Blood Urea Nitrogen 21 mg/dL (8-23); Calcium 8.9 mg/dL (8.5-10.5); Carbon Dioxide 23 mmol/L (22-29); Chloride 107 mmol/L (98-107); Creatinine Clr Calc Pharmacy 51.0615; Globulin 2.2 g/dL (1.3-4.6); Glucose 98 mg/dL (65-115); Osmolality Calculated 295 mOsm/kg (285-295); Potassium 4.1 mmol/L (3.5-5.1); Sodium 141 mmol/L (136-145); Total Bilirubin 0.6 mg/dL (0.15-1.2); Total Protein 6.3 g/dL (6.6-8.7)
[2024-11-15 06:52] LABS: Free T4 Free Thyroxine 0.23 ng/dL (0.82-1.77); T3 Free 1.2 PG/ML (2.0-4.4); Thyroid Stimulating Hormone 69.77 uIU/mL (0.27-4.20)
[2024-11-15] MEDS: lisinopril 10 mg Tablet PO (08:38)
[2024-11-15 11:25] LABS: Thyroid Stimulating Hormone 72.78 uIU/mL (0.27-4.20)
[2024-11-15] MEDS: levothyroxine 100 mcg SDV 75 MCG IVP (11:45)
--- NOTE | 2024-11-15 12:40 | P.PN_ITS ---
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, currently is alert oriented x 3, following all commands, denies any chest pain, no muscle spasms, but with her persistently elevated TSH, her generalized weakness, weakness and walking, I am worried that this is playing a significant role as I cannot find any other reason why she would be weak, especially as she was ambulatory and had no significant plaints of weakness a week ago, discussed her head CT did not show any acute stroke, lumbar spinal CT did not show any significant nerve impingement or any signs of infection, her infectious markers remain unremarkable, and as her TSH continues to be elevated the plan is to give her IV levothyroxine, watch her TSH, T3, T4, watch her weakness hopefully if her TSH improves we can potentially discharge her home, she has no hemodynamic compromise I am going to hold off on stress dose steroids as she is already received them, but will monitor on telemetry, monitor vitals closely, she is in agreement Vitals/I&O/Wt Last Vital Signs Temp 98.1 F 11/15/24 11:41 Pulse 75 11/15/24 11:41 Resp 16 11/15/24 11:41 BP 104/66 11/15/24 11:41 Pulse Ox 98 11/15/24 11:41 O2 Del Method Room Air 11/15/24 11:41 11/14/24 11/15/24 11/15/24 22:59 06:59 14:59 Intake Total 1680 / 2640 480 / 480 Balance 1680 / 2640 480 / 480 Weight last 48 hrs Weight 54.023 kg Weight 53.796 kg Physical Exam 2 Const: COMMON NORMALS: no acute distress and patient oriented x3 Resp: COMMON NORMALS: normal respiratory effort, No retractions, No use of accessory muscles and clear to auscultation bilaterally AUSCULTATION: clear to auscultation bilaterally Cardio: COMMON NORMALS: regular rate, regular rhythm, S1 normal heart sound present and S2 normal heart sound present RATE: regular rate RHYTHM: r egular rhythm HEART SOUNDS: S1 normal heart sound present and S2 normal heart sound present GI: COMMON NORMALS: Normal to inspection, nondistended, normoactive bowel sounds present and non-tender Extremity: COMMON NORMALS: no pedal edema Neuro: COMMON NORMALS: patient oriented x3 Psych: COMMON NORMALS: mental status grossly normal Data 11/15/24 05:08 11/15/24 05:08 A&P Assessment and plan (1) Urinary incontinence: (2) Elevated TSH: (3) Generalized muscle weakness: (4) Fall: Qualifiers: Encounter type: initial encounter Qualified Code(s): W19.XXXA - Unspecified fall, initial encounter (5) Peripheral neuropathy: (6) Altered mental status: (7) Myxedema coma: Plan Acute encephalopathy, resolving, -No focal weakness, no facial droop, no slurring words, no visual deficits -UA within normal limits -Head CT no acute findings -ESR, CRP, Pro-Prasanna within normal limits -Hypothyroidism certainly could be playing a role Myxedema coma -With weakness, rhabdomyolysis, encephalopathy - IV levothyroxine 75mcg -Cytomel increased to 25 mcg p.o. daily -Completed stress dose steroids -Watch TSH, T3, T4 Generalized weakness and fatigue -As above Mild muscle injury, monitor for rhabdomyolysis -IV fluids Increased lower extremity weakness, CT lumbar spine no acute findings -No urinary continence, no bowel incontinence, saddle perineal anesthesia Requested physical therapy DVT prophylaxis: Lovenox Cardiac diet Hypertension: Continue lisinopril Patient lives alone stating that her significant other checks on her on daily basis but they do not live together PDMP PDMP Reviewed: Not Reviewed Attestations 2 Medical Necessity Statement*: patient requires hospitalization for myxedema coma Diagnoses Urinary incontinence R32 Elevated TSH R79.89 Generalized muscle weakness M62.81 Fall W19.XXXA Encounter type: initial encounter Peripheral neuropathy G62.9 Altered mental status R41.82 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
[2024-11-15 17:02] LABS: Thyroid Stimulating Hormone 63.32 uIU/mL (0.27-4.20)
[2024-11-16] MEDS: enoxaparin 40 mg/0.4 mL Syringe SUBCUT ×2 (00:03→23:50)
[2024-11-16 04:00] VITALS: BP 156/73; PULSE 85; RESP 18; TEMP 36.6; O2SAT 98
[2024-11-16 04:04] LABS: Basophils # 0.1 10^3/uL (0.0-0.1); Basophils % 0.6 %; Hematocrit 45.3 % (36-47); Lymphocytes # 2.2 10^3/uL (0.8-4.8); Mean Corpuscular HGB Conc 31.1 g/dL (30-55); Mean Corpuscular Volume 80.5 fl (85-98); Mean Platelet Volume 11.2 fL (7.4-10.4); Monocytes # 0.7 10^3/uL (0.2-0.9); Monocytes % 6.9 %; Neutrophils # 7.79 10^3/uL (1.8-7.7); Neutrophils % 72.2 %; Nucleated Red Blood Cells % 0 %; Platelet Count 298 10^3/cmm (157-399); Red Blood Count 5.63 10^6/uL (3.85-5.65); Red Cell Distribution Width 15.3 % (12.1-15.1); White Blood Count 10.77 10^3/uL (3.29-11.43)
[2024-11-16 04:27] LABS: Alanine Aminotransferase 34 U/L (0-33); Albumin Level 4.5 g/dL (3.5-5.2); Alkaline Phosphatase 70 U/L (35-105); Anion Gap 15.8 (5-19); Aspartate Amino Transferase 35 U/L (0-32); Blood Urea Nitrogen 23 mg/dL (8-23); Calcium 9.3 mg/dL (8.5-10.5); Carbon Dioxide 24 mmol/L (22-29); Chloride 103 mmol/L (98-107); Creatinine Clr Calc Pharmacy 51.0615; Globulin 2.8 g/dL (1.3-4.6); Glucose 111 mg/dL (65-115); Osmolality Calculated 292 mOsm/kg (285-295); Potassium 3.8 mmol/L (3.5-5.1); Sodium 139 mmol/L (136-145); Total Bilirubin 0.6 mg/dL (0.15-1.2); Total Protein 7.3 g/dL (6.6-8.7)
[2024-11-16 04:33] LABS: Free T4 Free Thyroxine 0.34 ng/dL (0.82-1.77); T3 Free 1.6 PG/ML (2.0-4.4); Thyroid Stimulating Hormone 67.97 uIU/mL (0.27-4.20)
[2024-11-16 07:42] VITALS: BP 129/70; PULSE 74; RESP 16; TEMP 36.4; O2SAT 98
[2024-11-16] MEDS: levothyroxine 100 mcg SDV 75 MCG IVP (08:42)
[2024-11-16] MEDS: lisinopril 10 mg Tablet PO (08:42)
[2024-11-16 11:22] VITALS: BP 118/64; PULSE 69; RESP 17; TEMP 36.4; O2SAT 97
[2024-11-16 15:10] LABS: Procalcitonin 0.05 ng/mL (0-0.5); Thyroid Stimulating Hormone 56.13 uIU/mL (0.27-4.20)
[2024-11-16 16:01] VITALS: BP 160/87; PULSE 87; RESP 16; TEMP 36.7; O2SAT 95
--- NOTE | 2024-11-16 16:46 | P.PN_ITS ---
Subjective 2 Subjective: Patient was seen this morning, she is alert oriented x 2, does follow commands, during my conversation today she does have episodes of spacing out, episodes of confusion, no focal weakness she is able to follow commands such as squeezing my fingers, moving her feet able to smile for me I cannot discern any facial droop, no slurring of words, pupils equal round reactive to light, according to nursing staff patient has had episodes of confusion today, she denies any headache, blurry vision, no chest pain, Vitals/I&O/Wt Last Vital Signs Temp 98.0 F 11/16/24 16:01 Pulse 87 11/16/24 16:01 Resp 16 11/16/24 16:01 BP 160/87 11/16/24 16:01 Pulse Ox 95 11/16/24 16:01 O2 Del Method Room Air 11/16/24 16:01 11/16/24 11/16/24 11/16/24 06:59 14:59 22:59 Intake Total 120 / 120 Balance 120 / 120 Weight last 48 hrs Weight 53.932 kg Weight 54.023 kg Physical Exam 2 Const: COMMON NORMALS: no acute distress ORIENTATION/CONSCIOUSNESS: Yes awake, Yes oriented to person, Yes oriented to place and Yes confused; not oriented to time Resp: COMMON NORMALS: normal respiratory effort, No retractions, No use of accessory muscles and clear to auscultation bilaterally AUSCULTATION: clear to auscultation bilaterally Cardio: COMMON NORMALS: regular rate, regular rhythm, S1 normal heart sound present and S2 normal heart sound present RATE: regular rate RHYTHM: r egular rhythm HEART SOUNDS: S1 normal heart sound present and S2 normal heart sound present GI: COMMON NORMALS: Normal to inspection, nondistended, normoactive bowel sounds present and non-tender Extremity: COMMON NORMALS: no pedal edema Neuro: COMMON NORMALS: CN's II-XII intact bilaterally, moves all extremities and no focal motor deficits SENSORIUM/ORIENTATION: Yes oriented to person, Yes oriented to place and No oriented to time Data 11/16/24 03:38 11/16/24 03:38 A&P Assessment and plan (1) Urinary incontinence: (2) Elevated TSH: (3) Generalized muscle weakness: (4) Fall: Qualifiers: Encounter type: initial encounter Qualified Code(s): W19.XXXA - Unspecified fall, initial encounter (5) Peripheral neuropathy: (6) Altered mental status: (7) Myxedema coma: Plan Acute encephalopathy, persistent today -No focal weakness, no facial droop, no slurring words, no visual deficits -UA within normal limits -Head CT no acute findings -ESR, CRP, Pro-Prasanna within normal limits -Myxedema coma certainly playing a role -Concern for underlying dementia, which is becoming more prominent here while she is in the hospital as she is out of her regular home environment -Continue neurochecks, NIH stroke scale, aspiration precautions Myxedema coma -With weakness, rhabdomyolysis, encephalopathy - IV levothyroxine 75mcg -Cytomel increased to 25 mcg p.o. daily -Completed stress dose steroids -Watch TSH, T3, T4 Generalized weakness and fatigue -As above Mild muscle injury, monitor for rhabdomyolysis -IV fluids completed Increased lower extremity weakness, CT lumbar spine no acute findings -No urinary continence, no bowel incontinence, saddle perineal anesthesia Requested physical therapy DVT prophylaxis: Lovenox Cardiac diet Hypertension: Continue lisinopril Patient lives alone stating that her significant other checks on her on daily basis but they do not live together PDMP PDMP Reviewed: Not Reviewed Attestations 2 Medical Necessity Statement*: Patient requires hospitalization for acute encephalopathy, myxedema coma Diagnoses Urinary incontinence R32 Elevated TSH R79.89 Generalized muscle weakness M62.81 Fall W19.XXXA Encounter type: initial encounter Peripheral neuropathy G62.9 Altered mental status R41.82 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
[2024-11-16 18:20] LABS: Ammonia 16 umol/L (11-51)
[2024-11-16 20:00] VITALS: BP 160/78; PULSE 88; RESP 18; TEMP 36.6; O2SAT 97
[2024-11-17] VITALS (7 sets, daily range): BP systolic 101–180; BP diastolic 61–81; PULSE 0–95; RESP 16–18; TEMP 36.5–36.7; O2SAT 94–100
[2024-11-17 06:52] LABS: Basophils % 0.5 %; Eosinophils % 0.1 %; Hematocrit 41.2 % (36-47); Lymphocytes # 1.7 10^3/uL (0.8-4.8); Lymphocytes % 19.9 %; Mean Corpuscular HGB Conc 31.6 g/dL (30-55); Mean Corpuscular Hemoglobin 25.2 pg (27-33); Mean Platelet Volume 11.2 fL (7.4-10.4); Monocytes # 0.7 10^3/uL (0.2-0.9); Monocytes % 8.3 %; Neutrophils # 6.01 10^3/uL (1.8-7.7); Nucleated Red Blood Cells % 0 %; Platelet Count 270 10^3/cmm (157-399); Red Blood Count 5.15 10^6/uL (3.85-5.65); Red Cell Distribution Width 15.3 % (12.1-15.1); White Blood Count 8.46 10^3/uL (3.29-11.43)
[2024-11-17 07:11] LABS: Alanine Aminotransferase 36 U/L (0-33); Albumin Level 3.9 g/dL (3.5-5.2); Alkaline Phosphatase 64 U/L (35-105); Anion Gap 15.3 (5-19); Aspartate Amino Transferase 35 U/L (0-32); Blood Urea Nitrogen 18 mg/dL (8-23); Calcium 8.9 mg/dL (8.5-10.5); Carbon Dioxide 23 mmol/L (22-29); Chloride 103 mmol/L (98-107); Creatinine Clr Calc Pharmacy 52.5554; Globulin 2.1 g/dL (1.3-4.6); Glucose 102 mg/dL (65-115); Osmolality Calculated 286 mOsm/kg (285-295); Potassium 4.3 mmol/L (3.5-5.1); Sodium 137 mmol/L (136-145); Total Bilirubin 0.7 mg/dL (0.15-1.2)
[2024-11-17 07:15] LABS: Free T4 Free Thyroxine 0.29 ng/dL (0.82-1.77); Thyroid Stimulating Hormone 60.61 uIU/mL (0.27-4.20)
[2024-11-17] MEDS: levothyroxine 100 mcg SDV 75 MCG IVP (09:41)
[2024-11-17] MEDS: lisinopril 10 mg Tablet PO (09:41)
[2024-11-17 13:13] LABS: Blood Urine 2+ (Negative); Glucose Urine UA Norm (Normal); Ketones Urine Negative (Negative); Nitrate Urine Positive (Negative); Protein Urine Trace (Negative); Specific Gravity, Urine 1.015 (1.005-1.030); Urine Appearance Cloudy (CLEAR); Urine Color Yellow (Yellow); pH Urine 5 (5-7)
[2024-11-17 13:14] LABS: Add Urine Microscopic? YES; Bilirubin Urine Neg (Negative); Leukocyte Esterase Urine 2+ (Negative); RBC Urine >100 /hpf (0-2); UA Manual Slide Review YES; UA Slide Review UA Slide Review Perf; Urobilinogen Urine 1 mg/dL (Negative)
[2024-11-17 13:15] LABS: Bacteria Urine 3+ /hpf; Hyaline Casts Urine 0-4 /lpf; Squamous Epithelial Cell Urine 0-4 /hpf (0-5)
[2024-11-17 13:31] LABS: Add Urine Culture? Yes
[2024-11-17] MEDS: cefTRIAXone 1,000 mg SDV 1000 MG IVP (17:06)
--- NOTE | 2024-11-17 17:12 | P.PN_ITS ---
Subjective 2 Subjective: Patient was seen this morning, daughter is at bedside, she is alert to person, to place, not to time, daughter and patient have been noticing that recently she has had increased short-term memory loss, trouble remembering names, increased forgetfulness, they have been suspicious that she has dementia, we discussed that likely dementia becomes more evident while she is here in the hospital, her myxedema coma is improving, with IV levothyroxine, her strength is improving, I am still waiting on a urinalysis to make sure she does not have a UTI, but I think that her episodes of confusion are likely related to her dementia becoming more profound while she is in the hospital and she is out of her regular home environment, we discussed discharge plan tomorrow, she plans on going home, but I advised that she should have family members present at all times for help and to monitor mentation, she tells me that her boyfriend should be present for the next few weeks, Vitals/I&O/Wt Last Vital Signs Temp 97.7 F 11/17/24 11:20 Pulse 95 11/17/24 15:42 Resp 18 11/17/24 15:42 BP 101/61 11/17/24 15:42 Pulse Ox 96 11/17/24 15:42 O2 Del Method Room Air 11/17/24 15:42 11/17/24 11/17/24 11/17/24 06:59 14:59 22:59 Intake Total 680 / 920 600 / 600 Output Total 100 / 100 Balance 680 / 920 500 / 500 Weight last 48 hrs Weight 58.105 kg Weight 53.932 kg Physical Exam 2 Const: COMMON NORMALS: no acute distress ORIENTATION/CONSCIOUSNESS: Yes awake, Yes oriented to person and Yes oriented to place; not oriented to time Resp: COMMON NORMALS: normal respiratory effort, No retractions, No use of accessory muscles and clear to auscultation bilaterally AUSCULTATION: clear to auscultation bilaterally Cardio: COMMON NORMALS: regular rate, regular rhythm, S1 normal heart sound present and S2 normal heart sound present RATE: regular rate RHYTHM: r egular rhythm HEART SOUNDS: S1 normal heart sound present and S2 normal heart sound present GI: COMMON NORMALS: Normal to inspection, nondistended, normoactive bowel sounds present and non-tender Extremity: COMMON NORMALS: no pedal edema Neuro: COMMON NORMALS: CN's II-XII intact bilaterally, moves all extremities and no focal motor deficits SENSORIUM/ORIENTATION: Yes oriented to person, Yes oriented to place and No oriented to time Psych: COMMON NORMALS: mental status grossly normal Data 11/17/24 06:26 11/17/24 06:26 A&P Assessment and plan (1) Urinary incontinence: (2) Elevated TSH: (3) Generalized muscle weakness: (4) Fall: Qualifiers: Encounter type: initial encounter Qualified Code(s): W19.XXXA - Unspecified fall, initial encounter (5) Peripheral neuropathy: (6) Altered mental status: (7) Myxedema coma: (8) UTI (urinary tract infection): Plan Acute encephalopathy, improving -No focal weakness, no facial droop, no slurring words, no visual deficits -repeat UA shows evidence of uti, start rocephin -Head CT no acute findings -ESR, CRP, Pro-Prasanna within normal limits -Myxedema coma certainly playing a role -Concern for underlying dementia, which is becoming more prominent here while she is in the hospital as she is out of her regular home environment -Continue neurochecks, NIH stroke scale, aspiration precautions Myxedema coma -With weakness, rhabdomyolysis, encephalopathy - IV levothyroxine 75mcg -Cytomel increased to 25 mcg p.o. daily -Completed stress dose steroids -Watch TSH, T3, T4 Generalized weakness and fatigue -As above Mild muscle injury, monitor for rhabdomyolysis -IV fluids completed Increased lower extremity weakness, CT lumbar spine no acute findings -No urinary continence, no bowel incontinence, saddle perineal anesthesia Requested physical therapy DVT prophylaxis: Lovenox Cardiac diet Hypertension: Continue lisinopril Patient lives alone stating that her significant other checks on her on daily basis but they do not live together PDMP PDMP Reviewed: Not Reviewed Attestations 2 Medical Necessity Statement*: Plan for today, monitor mentation, IV Rocephin for UTI, IV levothyroxine for myxedema coma Diagnoses Urinary incontinence R32 Elevated TSH R79.89 Generalized muscle weakness M62.81 Fall W19.XXXA Encounter type: initial encounter Peripheral neuropathy G62.9 Altered mental status R41.82 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
[2024-11-18 00:40] VITALS: BP 131/64; PULSE 96; RESP 16; TEMP 36.9; O2SAT 97
[2024-11-18] MEDS: enoxaparin 40 mg/0.4 mL Syringe SUBCUT (00:41)
[2024-11-18 03:58] VITALS: BP 143/77; PULSE 80; RESP 17; TEMP 36.3; O2SAT 96
[2024-11-18] MEDS: levothyroxine 125 mcg Tablet PO (06:14)
[2024-11-18 06:51] LABS: Basophils % 0.3 %; Hematocrit 39.1 % (36-47); Lymphocytes # 1.7 10^3/uL (0.8-4.8); Lymphocytes % 16.7 %; Mean Corpuscular HGB Conc 31.7 g/dL (30-55); Mean Corpuscular Hemoglobin 25.5 pg (27-33); Mean Corpuscular Volume 80.3 fl (85-98); Mean Platelet Volume 10.9 fL (7.4-10.4); Monocytes # 0.8 10^3/uL (0.2-0.9); Monocytes % 7.4 %; Neutrophils # 7.73 10^3/uL (1.8-7.7); Neutrophils % 75.2 %; Nucleated Red Blood Cells % 0 %; Platelet Count 271 10^3/cmm (157-399); Red Blood Count 4.87 10^6/uL (3.85-5.65); Red Cell Distribution Width 15.6 % (12.1-15.1); White Blood Count 10.27 10^3/uL (3.29-11.43)
[2024-11-18 07:18] LABS: Alanine Aminotransferase 37 U/L (0-33); Albumin Level 3.8 g/dL (3.5-5.2); Alkaline Phosphatase 62 U/L (35-105); Anion Gap 14.3 (5-19); Aspartate Amino Transferase 30 U/L (0-32); Blood Urea Nitrogen 28 mg/dL (8-23); Calcium 9.1 mg/dL (8.5-10.5); Carbon Dioxide 25 mmol/L (22-29); Chloride 105 mmol/L (98-107); Creatinine Clr Calc Pharmacy 41.4202; Globulin 1.7 g/dL (1.3-4.6); Glucose 110 mg/dL (65-115); Osmolality Calculated 296 mOsm/kg (285-295); Potassium 4.3 mmol/L (3.5-5.1); Sodium 140 mmol/L (136-145); Total Bilirubin 0.4 mg/dL (0.15-1.2); Total Protein 5.5 g/dL (6.6-8.7)
[2024-11-18 07:22] LABS: Thyroid Stimulating Hormone 62.25 uIU/mL (0.27-4.20)
[2024-11-18 07:24] LABS: Free T4 Free Thyroxine 0.26 ng/dL (0.82-1.77); T3 Free 1.8 PG/ML (2.0-4.4)
[2024-11-18 07:31] VITALS: BP 114/64; PULSE 79; RESP 17; TEMP 36.7; O2SAT 96
[2024-11-18] MEDS: lisinopril 10 mg Tablet PO (08:34)
[2024-11-18] MEDS: levothyroxine 25 mcg Tablet PO (08:55)
[2024-11-18 09:12] VITALS: PULSE 79; RESP 16; O2SAT 96
--- NOTE | 2024-11-18 10:40 | P.DS_ITS ---
Discharge Providers Date of Admission: 11/12/24 23:09 Date of Discharge: November 18, 2024 Attending Provider at Admission: Jovanny Larkin MD Attending Provider at Discharge: Tomasz Ayala MD Primary Care Provider: Zandra Christianson MD Diagnoses at Discharge Discharge Diagnosis (1) Urinary incontinence: Status: Resolved (2) Elevated TSH: Status: Acute (3) Generalized muscle weakness: Status: Resolved (4) Fall: Status: Resolved Qualifiers: Encounter type: initial encounter Qualified Code(s): W19.XXXA - Unspecified fall, initial encounter (5) Peripheral neuropathy: Status: Acute (6) Altered mental status: Status: Resolved (7) Myxedema coma: Status: Resolved (8) UTI (urinary tract infection): Status: Resolved Reason for Visit Reason for Visit: Fall, Found on floor Hospital Course Hospital Course Marry Baltazar is a 79 year old female with history of hypothyroidism, hypertension, lives alone, presented after sustaining a fall Patient was managed as inpatient for acute encephalopathy, head CT no acute findings, initial UA no evidence of UTI, no strokelike symptoms,, no seizure- like symptoms, however with elevated TSH, concerns for myxedema coma Patient was monitored as inpatient for myxedema coma, with weakness, rhabdomyolysis, encephalopathy received IV levothyroxine with Cytomel. Patient's TSH, T3, T4, clinical status was monitored daily. Overall patient's clinical condition improved, transition to p.o. Cytomel, p.o. levothyroxine, with a close follow-up with endocrinology as outpatient Rhabdomyolysis received IV fluids, resolved on discharge Patient had complaints of bilateral extremity weakness, likely component of myxedema coma, CT lumbar spine no acute findings Patient did develop a urinary tract infection during hospitalization, with repeat UA showing evidence of UTI, managed on Rocephin, discharged on p.o. antibiotics Patient will be discharged home, to the care of her family, as she has declined placement of correction facility There was also concerns for dementia during hospitalization, due to increased short-term memory loss, but certainly the UTI, myxedema coma could be playing a role. Nonetheless patient is to follow-up with primary care provider as outpatient. Physical Exam Const: COMMON NORMALS: no acute distress and patient oriented x3 Resp: COMMON NORMALS: normal respiratory effort, No retractions, No use of accessory muscles and clear to auscultation bilaterally AUSCULTATION: clear to auscultation bilaterally Cardio: COMMON NORMALS: regular rate, regular rhythm, S1 normal heart sound present and S2 normal heart sound present RATE: regular rate RHYTHM: regular rhythm HEART SOUNDS: S1 normal heart sound present and S2 normal he art sound present GI: COMMON NORMALS: Normal to inspection, nondistended, normoactive bowel sounds present Extremity: COMMON NORMALS: no pedal edema Neuro: COMMON NORMALS: patient oriented x3 Psych: COMMON NORMALS: mental status grossly normal Discharge Data Studies Completed and Pending Completed Studies During Hospitalization Category Date Time Status CT head wo con* [id number] Routine Cat Scan 11/14/24 15:[address] head wo con* [id number] Stat Cat Scan 11/12/24 21:[address] lumbar spine wo con* [id number] Routine Cat Scan 11/14/24 15:00 Completed XR chest 1V portable [id number] Stat Exams 11/12/24 21:13 Completed XR hip BI 2V wo/w pel [id number] Routine Exams 11/13/24 17:03 Completed XR lumbar spine 2-3V* [id number] Routine Exams 11/13/24 17:03 Completed CV. echo complete* [id number] Routine Ultrasound 11/12/24 23:51 Completed Pending at discharge Category Date Time Status Complete Blood Count w/Auto AM LABS Lab 11/19/24 04:00 Ordered Comprehensive Metabolic Panel AM LABS Lab 11/19/24 04:00 Ordered Urine Culture Routine Lab 11/17/24 12:08 Results Radiology Impressions Chest X-Ray 11/12/24 21:13 IMPRESSION: No acute findings. Hip/Pelvis X-Ray 11/13/24 17:03 IMPRESSION: No fracture or acute osseous abnormality. Lumbar Spine X-Ray 11/13/24 17:03 IMPRESSION: No fracture or subluxation identified. Mild spondylotic change. Head CT 11/14/24 15:00 IMPRESSION: No acute intracranial abnormality. Lumbar Spine CT 11/14/24 15:00 IMPRESSION: No acute findings. Laboratory Results WBC 10.27 10^3/uL (3.29-11.43) 11/18/24 06:33 RBC 4.87 10^6/uL (3.85-5.65) 11/18/24 06:33 Hgb 12.40 g/dL (11.27-16.99) 11/18/24 06:33 Hct 39.1 % (36-47) 11/18/24 06:33 MCV 80.3 fl (85-98) L 11/18/24 06:33 MCH 25.5 pg (27-33) L 11/18/24 06:33 MCHC 31.7 g/dL (30-55) 11/18/24 06:33 RDW 15.6 % (12.1-15.1) H 11/18/24 06:33 Plt Count 271 10^3/cmm (157-399) 11/18/24 06:33 MPV 10.9 fL (7.4-10.4) H 11/18/24 06:33 Neut % (Auto) 75.2 % 11/18/24 06:33 Lymph % (Auto) 16.7 % 11/18/24 06:33 [place] % (Auto) 7.4 % 11/18/24 06:33 Eos % (Auto) 0.0 % 11/18/24 06:33 Baso % (Auto) 0.3 % 11/18/24 06:33 Neut # (Auto) 7.73 10^3/uL (1.8-7.7) H 11/18/24 06:33 Lymph # (Auto) 1.7 10^3/uL (0.8-4.8) 11/18/24 06:33 [place] # (Auto) 0.8 10^3/uL (0.2-0.9) 11/18/24 06:33 Eos # (Auto) 0.0 10^3/uL (0.0-0.8) 11/18/24 06:33 Baso # (Auto) 0.0 10^3/uL (0.0-0.1) 11/18/24 06:33 Nucleated RBC % (auto) 0 % 11/18/24 06: Nucleated RBCs # 0.0 /100WBC 11/18/24 06:33 ESR 4 mm/hr (0-15) 11/14/24 15:16 Sodium 140 mmol/L (136-145) 11/18/24 06:33 Potassium 4.3 mmol/L (3.5-5.1) 11/18/24 06:33 Chloride 105 mmol/L (98-107) 11/18/24 06:33 Carbon Dioxide 25 mmol/L (22-29) 11/18/24 06:33 Anion Gap 14.3 (5-19) 11/18/24 06:33 BUN 28 mg/dL (8-23) H 11/18/24 06:33 Creatinine 1.0 mg/dL (0.5-0.9) H 11/18/24 06:33 GFR Calculation Not Reportable 11/18/24 06:33 Glucose 110 mg/dL (65-115) 11/18/24 06:33 Estimat Average Glucose 128 11/12/24 21:28 Hemoglobin A1c 6.1 % (4.0-6.0) H 11/12/24 21:28 Calculated Osmolality 296 mOsm/kg (285-295) H 11/18/24 06:33 Calcium 9.1 mg/dL (8.5-10.5) 11/18/24 06:33 Phosphorus 4.0 mg/dL (2.5-4.5) 11/13/24 02:40 Magnesium 2.2 mg/dL (1.7-2.3) 11/13/24 02:40 Total Bilirubin 0.4 mg/dL (0.15-1.2) 11/18/24 06:33 AST 30 U/L (0-32) 11/18/24 06:33 ALT 37 U/L (0-33) H 11/18/24 06:33 Alkaline Phosphatase 62 U/L (35-105) 11/18/24 06:33 Ammonia 16 umol/L (11-51) 11/16/24 17:47 Creatine Kinase 933 U/L (26-192) H* 11/14/24 05:33 C-Reactive Protein 3.0 mg/L (0.0-4.9) 11/17/24 06:26 Total Protein 5.5 g/dL (6.6-8.7) L 11/18/24 06:33 Albumin 3.8 g/dL (3.5-5.2) 11/18/24 06:33 Globulin 1.7 g/dL (1.3-4.6) 11/18/24 06:33 Vitamin B12 323 pg/mL (232-1245) 11/12/24 21:28 Procalcitonin 0.05 ng/mL (0-0.5) 11/16/24 14:30 TSH 62.25 uIU/mL (0.27-4.20) H 11/18/24 06:33 Free T4 0.26 ng/dL (0.82-1.77) L 11/18/24 06:33 Free T3 1.8 PG/ML (2.0-4.4) L 11/18/24 06:33 Urine Color Yellow (Yellow) 11/17/24 12:08 Urine Appearance Cloudy (CLEAR) A 11/17/24 12:08 Urine pH 5 (5-7) 11/17/24 12:08 Ur Specific [place] 1.015 (1.005-1.030) 11/17/24 12:08 Urine Protein Trace (Negative) 11/17/24 12:08 Urine Glucose (UA) Norm (Normal) 11/17/24 12:08 Urine Ketones Negative (Negative) 11/17/24 12:08 Urine Blood 2+ (Negative) H 11/17/24 12:08 Urine Nitrate Positive (Negative) A 11/17/24 12:08 Urine Bilirubin Neg (Negative) 11/17/24 12:08 Urine Urobilinogen 1 mg/dL (Negative) H 11/17/24 12:08 Ur Leukocyte Esterase 2+ (Negative) H 11/17/24 12:08 Urine RBC >100 /hpf (0-2) H 11/17/24 12:08 Urine WBC 10-15 /hpf (0-5) H 11/17/24 12:08 Ur Squamous Epith Cells 0-4 /hpf (0-5) H 11/17/24 12:08 Amorphous Sediment Not Reportable 11/17/24 12:08 Urine Bacteria 3+ /hpf (NONE) H 11/17/24 12:08 Hyaline Casts 0-4 /lpf H 11/17/24 12:08 Vitals Last Vital Signs Temp 98.1 F 11/18/24 07:31 Pulse 79 11/18/24 09:12 Resp 16 11/18/24 09:12 BP 114/64 11/18/24 07:31 Pulse Ox 96 11/18/24 09:12 O2 Del Method Room Air 11/18/24 09:12 Discharge Plan Discharge Patient Disposition: Home Condition: Stable Prescriptions: New liothyronine 25 mcg Tablet 25 mcg PO DAILY 30 Days Qty: 30 0RF levothyroxine 150 mcg Tablet 150 mcg PO QAM 30 Days Qty: 30 0RF Continued lisinopril 10 mg tablet 10 mg PO DAILY ibuprofen 600 mg tablet See Rx Instructions .ROUTE .COMPLEX Rx Instructions: TAKE 1 TABLET BY MOUTH EVERY 6 TO 8 HOURS NEEDED FOR PAIN. rosuvastatin 5 mg tablet 5 mg PO QPM Discontinued liothyronine 5 mcg tablet 10 mcg PO DAILY levothyroxine [Levoxyl] 100 mcg tablet 100 mcg PO DAILY Discharge Orders: Discharge Order (Routine); Ordered 11/18/24 Ordered By: Tomasz Ayala Other Ambulatory Orders: DME: [facility] (Order) Location: None Selected Ordered By: Tomasz Ayala Referrals: Zandra Christianson MD [Primary Care Provider] - 11/19/24 9:30 am Analilia Robert MD [Physician] - (We have notified your physician's clinic of the need for a follow-up appointment to be scheduled. If you have not heard from them within the next 2 business days, please call them directly. ) Discharge Diet: Cardiac Discharge Activity: Resume usual activity Patient Instructions: Ciprofloxacin (By mouth), Levofloxacin (By mouth) (Levaquin, Levaquin Leva-deja), Liothyronine (By mouth), Urinary Tract Infection in Women (GEN), Opioid Safety Discharge Attestations Time Spent in Discharge Care*: greater than 30 min Quality Metrics Clinical Quality Measures [ No reported AMI, CVA or VTE this stay] Coding Level of Care Code 66355 Total time (in minutes) for Discharge: 45 Diagnoses Urinary incontinence R32 Elevated TSH R79.89 Generalized muscle weakness M62.81 Fall W19.XXXA Encounter type: initial encounter Peripheral neuropathy G62.9 Altered mental status R41.82 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
[2024-11-18 10:51] VITALS: BP 114/64; PULSE 79; RESP 17; TEMP 36.7; O2SAT 96
== END 2024-11-18 11:36 | disposition home or self-care (01) | DRG 564 ==
LOC: ER 22:55 → MEDSURG 23:10
PROVIDERS: Admitting Provider Internal Medicine; Emergency Provider Emergency Medicine; PCP Internal Medicine; Visit Provider Family Medicine
DX: T79.6XXA Traumatic ischemia of muscle, initial encounter (principal); E03.5 Myxedema coma; G93.41 Metabolic encephalopathy; N39.0 Urinary tract infection, site not specified; D25.9 Leiomyoma of uterus, unspecified; Z85.850 Personal history of malignant neoplasm of thyroid; I10 Essential (primary) hypertension; Z87.440 Personal history of urinary (tract) infections; Z79.890 Hormone replacement therapy; Z79.899 Other long term (current) drug therapy; Z98.890 Other specified postprocedural states; Z90.710 Acquired absence of both cervix and uterus; Z81.1 Family history of alcohol abuse and dependence; Z80.9 Family history of malignant neoplasm, unspecified; G62.9 Polyneuropathy, unspecified; W01.0XXA Fall on same level from slipping, tripping and stumbling without subsequent striking against object, initial encounter
CPT/HCPCS: 36415; 70450; 71045; 72100; 72131; 73521; 80048; 80053; 81001; 82140; 82550; 82607; 83036; 83735; 84100; 84145; 84439; 84443; 84481; 85025; 85651; 86140; 87077; 87086; 87186; 93005; 93306; 96372; 97110; 97116; 97161; 97530; 99285; J0696; J1650; J1720; J3490; J7030; J9999

== ENCOUNTER 2024-12-11 08:14 | Outpatient (CLI) | payer MEDICARE, OTHER, SELFPAY ==
--- NOTE | 2024-12-11 08:16 | MR_ITS ---
WS: [id number] MRI BRAIN WITHOUT CONTRAST HISTORY: MEMORY LOSS COMPARISON: 03/03/2024 TECHNIQUE: Diffusion imaging, multiplanar T1, T2 and FLAIR imaging obtained. Moderate atrophy with moderate small vessel ischemic changes throughout the subcortical and periventricular white matter. No large territory infarct. There does appear to have been an increase in the small vessel disease since the prior study of 03/03/2024 especially surrounding the ventricles. Mild ventriculomegaly on the basis of atrophy. No inferior displacement of cerebellar tonsils. The sella turcica and pituitary gland are unremarkable. Dural venous sinuses and [place] demonstrate no abnormality on this unenhanced studies. Paranasal sinuses: Clear. Mastoid air cells: Normal. Calvarium and scalp: Intact. MR/MR head wo con* [id number] IMPRESSION: 1. No acute infarcts or hemorrhage. 2. Mild interval progression of small vessel ischemic changes in the periventr icular white matter since 03/03/2024. 3. Moderate atrophy and small vessel disease.
== END 2024-12-11 08:15 | disposition home or self-care (01) ==
LOC: RAD 08:16
PROVIDERS: PCP Internal Medicine; Visit Provider Internal Medicine
DX: R41.3 Other amnesia (principal); R93.0 Abnormal findings on diagnostic imaging of skull and head, not elsewhere classified; G31.89 Other specified degenerative diseases of nervous system
CPT/HCPCS: 70551

== ENCOUNTER 2025-02-18 16:10 | Emergency (ER) | payer MEDICARE, OTHER, SELFPAY ==
--- OUTSIDE RECORDS SUMMARY | 2025-02-18 16:14 | XMS_ITS ---
Laboratory report Created on: February 13, 2025 CAROL SILVA : 1945 Sex: Female Author Name SUDHEER SUAREZ [employer] Unknown PROBLEMS Problems List Code Description R27.9 RESULTS Laboratory Orders Date Order Code Test 2025-02-04 737827 TRIIODOTHYRONINE (T3), FREE 2025-02-04 141304 CMP14+CBC/D/PLT+ TSH 2025-02-04 221623 VITAMIN B12 2025-02-04 658407 THYROXINE (T4) F REE, DIRECT Laboratory Results Date LOINC Test Value Unit Reference Range Interpretation 2025-02-04 3051-0 TRIIODOTHYRONINE (T3), FREE 6.5 PG/ML 2.0-4.4 H 2025-02-04 2345-7 GLUCOSE 92 MG/DL 70-99 2025-02-04 3094-0 BUN 19 MG/DL 8-27 2025-02-04 2160-0 CREATININE .72 MG/DL 0.57-1.00 2025-02-04 82077-7 EGFR 86 ML/MIN/1.7 3 >59 2025-02-04 3097-3 BUN/CREATININE RATIO 13 08-2025-02-04 2951-2 SODIUM 141 MMOL/L 259-472 3604-06-19 2823-3 POTASSIUM 4.1 MMOL/L 3.5-5.2 2025-02-04 2075-0 CHLORIDE 102 MMOL/L 96-106 2025-02-04 2028-9 CARBON DIOXIDE, TOTAL 22 MMOL/L -2025-02-04 53841-7 CALCIUM 10.4 MG/DL 8.7-10.3 H 2025-02-04 2885-2 PROTEIN, TOTAL 7.1 G/DL 6.0-8.5 2025-02-04 1751-7 ALBUMIN 5 G/DL 3.8-4.8 H 2025-02-04 61203-5 GLOBULIN, TOTAL 2.1 G/DL 1.5-4.5 2025-02-04 1975-2 BILIRUBIN, TOTAL .7 MG/DL 0.0-1.2 2025-02-04 6768-6 ALKALINE PHOSPHATASE 70 IU/L 44-121 2025-02-04 1920-8 AST (SGOT) 16 IU/L 0-40 2025-02-04 1742-6 ALT (SGPT) 12 IU/L 0-32 2025-02-04 99577-6 TSH .026 UIU/ML 0.450-4.500 L 2025-02-04 6690-2 WBC 5.7 X10E3/UL 3.4-10.8 2025-02-04 789-8 RBC 5.27 X10E6/UL 3.77-5.28 2025-02-04 718-7 HEMOGLOBIN 13.8 G/DL 11.1-15.9 2025-02-04 4544-3 HEMATOCRIT 43.1 % 34.0-46.6 2025-02-04 787-2 MCV 82 FL 79-97 2025-02-04 785-6 MCH 26.2 PG 26.6-33.0 L 2025-02-04 786-4 MCHC 32 G/DL 31.5-35.7 2025-02-04 788-0 RDW 13.5 % 11.7-15.4 2025-02-04 777-3 PLATELETS 266 X10E3/UL 326-769 2020-06-19 770-8 NEUTROPHILS 67 % 2025-02-04 736-9 LYMPHS 25 % 2025-02-04 5905-5 MONOCYTES 7 % 2025-02-04 713-8 EOS 0 % 2025-02-04 706-2 BASOS 1 % 2025-02-04 751-8 NEUTROPHILS (ABSOLUTE) 3.9 X10E3/UL 1.4-7 .0 2025-02-04 731-0 LYMPHS (ABSOLUTE) 1.4 X10E3/UL 0.7-3.1 2025-02-04 742-7 MONOCYTES(ABSOLUTE) .4 X10E3/UL 0.1-0.9 2025-02-04 711-2 EOS (ABSOLUTE) 0 X10E3/UL 0.0-0.4 2025-02-04 704-7 BASO (ABSOLUTE) 0 X10E3/UL 0.0-0.2 2025-02-04 14915-5 IMMATURE GRANULOCYTES 0 % 2025-02-04 96851-1 IMMATURE GRANS (ABS) 0 X10E3/UL 0.0-0.1 2025-02-04 2132-9 VITAMIN B12 266 PG/ML 232-1245 2025-02-04 3024-7 T4,FREE(DIRECT) 2.45 NG/DL 0.82-1.77 H
[2025-02-18 16:16] VITALS: BP 155/86; PULSE 112; RESP 18; TEMP 36.4; O2SAT 97
--- NOTE | 2025-02-18 16:41 | ED_ITS ---
HPI - Altered Mental Status 2 General: Chief Complaint: Altered Mental Status Stated Complaint: ams,found on bedroom floor Time Seen by Provider: 02/18/25 16:26 History of Present Illness: This patient is a 79 year old presenting by POV after being found on the floor by her significant other today at around noon. The patient has dementia and is not really a reliable historian. Her SO, Joseluis, says that she was sitting on the floor in her bedroom undressed and incontinent of urine. He thought it looked as though she had fallen in the living room although he did not specify what made him think that. The patient says that she was sitting on the floor sorting through a drawer - and denies that she fell. She denies any pain currently. The patient's daughter is also here and she reports that the patient has been getting rapidly worse in terms of her dementia. The patient has no thyroid and had not been taking her medicine since about August. She was admitted here 3 months ago with a similar presentation when she was found on the floor and had been there for 6 or 7 hours. Joseluis estimates that she was on the floor for about 4 hours this morning. The patient lives alone - she has a pill organizer and she says that she takes her meds regularly - but it sounds like maybe she doesn't. Family isn't sure about whether the appropriate number of pills is missing. The patient also has lost about 25 pounds since August and her daughter says that the scale today showed that she had lost another 5 pounds. She has not been eating well according to family. Family is not aware that she has been ill recently - no vomiting, diarrhea, fever, cough as far as they know. Related Data Home Medications ?Medication ?Instructions ?Recorded ?Confirmed lisinopril 10 mg tablet 10 mg PO DAILY 03/30/2012/18 ibuprofen 600 mg tablet See Rx Instructions .Route . COMPLEX 11/14/24 01/07/25 rosuvastatin 5 mg tablet 5 mg PO QPM 11/14/24 5 Allergies Allergy/AdvReac Type Severity Reaction Status Date / Time No Known Allergies Allergy Verified 02/18/25 16:25 [facility] ED 2 [facility]: Medical History Uterine fibroid Thyroid cancer Hypertension Recurrent UTI Urinary incontinence Surgical History H/O breast biopsy H/O: hysterectomy H/O thyroidectomy Family History Father , 66 Alcohol abuse Mother , 42 Cancer Social History Smoking and tobacco/nicotine status: unknown if used tobacco/nicotine Alcohol intake: current Alcohol intake frequency: few times a month Substance/Drug Use: never Marital status: / Physical Exam 2 Const: COMMON NORMALS: no acute distress and alert GENERAL APPEARANCE: c ooperative and comfortable OTHER: nicely dressed and made up HENMT: HEAD & SCALP: normal to inspection FACE & SINUS: normal facial exam Eye: GENERAL EYE: appearance normal, both eyes and all related structures Neck/C-Spine: COMMON NORMALS: supple, no meningeal signs and no JVD Chest: COMMONS NORMALS: normal inspection of the chest Resp: COMMON NORMALS: normal respiratory effort, No use of accessory muscles and clear to auscultation bilaterally AUSCULTATION: clear to auscultation bilaterally Cardio: COMMON NORMALS: no JVD, regular rate, regular rhythm and No murmurs present (Cardio) RATE: regular rate RHYTHM: regular rhythm GI: COMMON NORMALS: Normal to inspection, nondistended, normoactive bowel sounds present, Soft to palpation and non-tender INSPECTION: Yes normal to inspection AUSCULTATION: Yes normoactive bowel sounds PALPATION: Yes Soft to palpation Back/Pelvis: COMMON NORMALS: thoracic and lumbar spine normal to inspection Extremity: COMMON NORMALS: normal to inspection Neuro: COMMON NORMALS: moves all extremities, no focal motor deficits and no sensory deficits noted SENSORIUM/ORIENTATION: Yes alert MENINGEAL SIGNS: Y es no meningeal signs OTHER: oriented to person and place Psych: COMMON NORMALS: mental status grossly normal, cooperative and normal affect OTHER: thoughts seem disorganized Skin: COMMON NORMALS: no rashes or lesions noted and turgor normal GENERAL SKIN EXAM: no rashes or lesions noted and turgor normal Course 2 Vital Signs: Vital signs: Vital Signs Temperature 97.5 F L 02/18/25 16:16 Pulse Rate 97 02/18/25 20:56 Respiratory Rate 15 02/18/25 20:56 Blood Pressure 150/70 02/18/25 20:56 Pulse Oximetry 97 02/18/25 20:56 Oxygen Delivery Me thod Room Air 02/18/25 16:16 MDM - Altered Mental Status Medical Decision Making This patient was in the hospital with myxedema recently - she had a follow up appointment with her PCP yesterday and got a new prescription for a reduced dose of her thyroid replacement. This is consistent with what we found on labs today as she is somewhat high. There is no apparent reason why she was on the floor today - she does not appear to have any infection - and no injury from the fall. This may be related to her worsening demenita. Her significant other will stay with her this weekend and family will develop a plan for either round the clock care at home or placement. Lab Data 02/18/25 16:42 02/18/25 16:42 Laboratory Results WBC 11.45 10^3/uL (3.29-11.43) H 02/18/25 16:42 RBC 5.81 10^6/uL (3.85-5.65) H 02/18/25 16:42 Hgb 14.40 g/dL (11.27-16.99) 02/18/25 16:42 Hct 45.9 % (36-47) 02/18/25 16:42 MCV 79.0 fl (85-98) L 02/18/25 16:42 MCH 24.8 pg (27-33) L 02/18/25 16:42 MCHC 31.4 g/dL (30-55) 02/18/25 16:42 RDW 13.2 % (12.1-15.1) 02/18/25 16:42 Plt Count 260 10^3/cmm (157-399) 02/18/25 16:42 MPV 11.6 fL (7.4-10.4) H 02/18/25 16:42 Neut % (Auto) 81.1 % 02/18/25 16:42 Lymph % (Auto) 11.4 % 02/18/25 16:42 [place] % (Auto) 6.9 % 02/18/25 16:42 Eos % (Auto) 0.0 % 02/18/25 16:42 Baso % (Auto) 0.3 % 02/18/25 16:42 Neut # (Auto) 9.30 10^3/uL (1.8-7.7) H 02/18/25 16:42 Lymph # (Auto) 1.3 10^3/uL (0.8-4.8) 02/18/25 16:42 Turner # (Auto) 0.8 10^3/uL (0.2-0.9) 02/18/25 16:42 Eos # (Auto) 0.0 10^3/uL (0.0-0.8) 02/18/25 16:42 Baso # (Auto) 0.0 10^3/uL (0.0-0.1) 02/18/25 16:42 Nucleated RBC % (auto) 0 % 02/18/25 16:42 Nucleated RBCs # 0.0 /100WBC 02/18/25 16:42 Sodium 141 mmol/L (136-145) 02/18/25 16:42 Potassium 3.6 mmol/L (3.5-5.1) 02/18/25 16:42 Chloride 103 mmol/L (98-107) 02/18/25 16:42 Carbon Dioxide 23 mmol/L (22-29) 02/18/25 16:42 Anion Gap 18.6 (5-19) 02/18/25 16:42 BUN 20 mg/dL (8-23) 02/18/25 16:42 Creatinine 0.7 mg/dL (0.5-0.9) 02/18/25 16:42 GFR Calculation Not Reportable 02/18/25 16:42 Glucose 111 mg/dL (65-115) 02/18/25 16:42 Calculated Osmolality 295 mOsm/kg (285-295) 02/18/25 16:42 Lactic Acid 1.4 mmol/L (0.5-2.2) 02/18/25 16:42 Calcium 9.7 mg/dL (8.5-10.5) 02/18/25 16:42 Total Bilirubin 0.9 mg/dL (0.15-1.2) 02/18/25 16:42 AST 20 U/L (0-32) 02/18/25 16:42 ALT 16 U/L (0-33) 02/18/25 16:42 Alkaline Phosphatase 68 U/L (35-105) 02/18/25 16:42 Creatine Kinase 261 U/L (26-192) H 02/18/25 16:42 Total Protein 7.0 g/dL (6.6-8.7) 02/18/25 16:42 Albumin 4.4 g/dL (3.5-5.2) 02/18/25 16:42 Globulin 2.6 g/dL (1.3-4.6) 02/18/25 16:42 TSH 0.02 uIU/mL (0.27-4.20) L 02/18/25 16:42 Free T4 2.17 ng/dL (0.82-1.77) H 02/18/25 16:42 Free T3 3.6 PG/ML (2.0-4.4) 02/18/25 16:42 Urine Color Yellow (Yellow) 02/18/25 16:41 Urine Appearance Clear (CLEAR) 02/18/25 16:41 Urine pH 5.5 (5-7) 02/18/25 16:41 Ur Specific [place] 1.016 (1.005-1.030) 02/18/25 16:41 Urine Protein Trace (Negative) A 02/18/25 16:41 Urine Glucose (UA) Negative (Normal) 02/18/25 16:41 Urine Ketones 1+ (Negative) H 02/18/25 16:41 Urine Blood Trace (Negative) A 02/18/25 16:41 Urine Nitrate Negative (Negative) 02/18/25 16:41 Urine Bilirubin Negative (Negative) 02/18/25 16:41 Urine Urobilinogen 1.0 mg/dL (Negative) 02/18/25 16:41 Ur Leukocyte Esterase Negative (Negative) 02/18/25 16:41 Urine RBC 0-2 /hpf (0-2) 02/18/25 16:41 Urine WBC 0-5 /hpf (0-5) 02/18/25 16:41 Ur Squamous Epith Cells 0-5 /hpf (0-5) 02/18/25 16:41 Amorphous Sediment Not Reportable 02/18/25 16:41 Urine Bacteria None seen /hpf (NONE) 02/18/25 16:41 Hyaline Casts 1.21 /lpf 02/18/25 16:41 All radiology interpretation(s) finalized by discharge Discharge Plan Discharge Patient Disposition: Home Clinical Impression: Fall, Dementia, Elevated serum free T4 level Condition: Stable Prescriptions: No Action lisinopril 10 mg tablet 10 mg PO DAILY ibuprofen 600 mg tablet See Rx Instructions .ROUTE .COMPLEX Rx Instructions: TAKE 1 TABLET BY MOUTH EVERY 6 TO 8 HOURS NEEDED FOR PAIN. rosuvastatin 5 mg tablet 5 mg PO QPM Discharge Orders: Discharge ED (Routine); Ordered 02/18/25 Ordered By: Pastora Tucker Referrals: Zandra Christianson MD [Primary Care Provider, Internal Medicine] Patient Instructions: Altered Mental Status (ED), Opioid Safety, Pain Management, Patient Portal & Maria C Instructions Activity Restrictions/Additional Instructions: Ms Baltazar should not be alone due to risk of falling. Discuss needs for care with Dr. Christianson to help determine the best plan and what resources are available. When the lower dose of thyroid medicine is available make sure to switch to that. Dispose of the other medication so that there is no confusion as to which one to take. Print Language: Tamazight Coding Level of Care Code ED Manager Pathology for Antony Davis
[2025-02-18 16:51] LABS: Glucose Urine UA Negative (Normal); Nitrate Urine Negative (Negative); Specific Gravity, Urine 1.016 (1.005-1.030)
[2025-02-18 16:53] LABS: Add Urine Microscopic? YES
--- NOTE | 2025-02-18 16:53 | ECG_ITS ---
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
[2025-02-18 16:57] LABS: Hematocrit 45.9 % (36-47); Hemoglobin 14.40 g/dL (11.27-16.99); Mean Corpuscular HGB Conc 31.4 g/dL (30-55); Mean Corpuscular Hemoglobin 24.8 pg (27-33); Mean Corpuscular Volume 79.0 fl (85-98); Nucleated Red Blood Cells % 0 %; Platelet Count 260 10^3/cmm (157-399); Red Blood Count 5.81 10^6/uL (3.85-5.65); White Blood Count 11.45 10^3/uL (3.29-11.43)
[2025-02-18 17:08] LABS: Lactic Sepsis W/Reflex 1.4 mmol/L (0.5-2.2)
[2025-02-18 17:27] LABS: Alanine Aminotransferase 16 U/L (0-33); Albumin Level 4.4 g/dL (3.5-5.2); Alkaline Phosphatase 68 U/L (35-105); Anion Gap 18.6 (5-19); Aspartate Amino Transferase 20 U/L (0-32); Blood Urea Nitrogen 20 mg/dL (8-23); Calcium 9.7 mg/dL (8.5-10.5); Carbon Dioxide 23 mmol/L (22-29); Chloride 103 mmol/L (98-107); Creatinine Clr Calc Pharmacy 48.7208; Globulin 2.6 g/dL (1.3-4.6); Glucose 111 mg/dL (65-115); Osmolality Calculated 295 mOsm/kg (285-295); Potassium 3.6 mmol/L (3.5-5.1); Sodium 141 mmol/L (136-145); Thyroid Stimulating Hormone 0.02 uIU/mL (0.27-4.20); Total Protein 7.0 g/dL (6.6-8.7)
[2025-02-18 18:43] VITALS: BP 154/70; PULSE 85; O2SAT 96
[2025-02-18 19:30] VITALS: BP 149/72; PULSE 92; RESP 16; O2SAT 98
[2025-02-18 20:00] VITALS: BP 155/81; PULSE 90; RESP 17; O2SAT 96
[2025-02-18 20:23] LABS: Free T4 Free Thyroxine 2.17 ng/dL (0.82-1.77)
[2025-02-18 20:56] VITALS: BP 150/70; PULSE 97; RESP 15; O2SAT 97
== END 2025-02-18 20:58 | disposition home or self-care (01) ==
PROVIDERS: Emergency Provider Emergency Medicine; PCP Internal Medicine
DX: R94.6 Abnormal results of thyroid function studies (principal); F03.90 Unspecified dementia, unspecified severity, without behavioral disturbance, psychotic disturbance, mood disturbance, and anxiety; W19.XXXA Unspecified fall, initial encounter; I10 Essential (primary) hypertension; Z85.850 Personal history of malignant neoplasm of thyroid
CPT/HCPCS: 36415; 80053; 81001; 82550; 83605; 84439; 84443; 84481; 85025; 93005; 93010; 99284

== ENCOUNTER → 2025-05-11 09:13 | Outpatient (BNVA) | payer MEDICARE, OTHER, SELFPAY | PROVIDERS: PCP Internal Medicine; Visit Provider Nurse Practitioner Family | DX: L72.0 Epidermal cyst (principal); L82.1 Other seborrheic keratosis; L81.4 Other melanin hyperpigmentation; L57.8 Other skin changes due to chronic exposure to nonionizing radiation; D48.5 Neoplasm of uncertain behavior of skin | CPT/HCPCS: 11102; 99213 ==